=== PATIENT | female | born 1950 | race Caucasian/White ===

== ENCOUNTER 2025-02-01 23:31 | Inpatient (IN) | payer MEDICARE ==
[2025-02-02] MEDS ORDERED: HEPARIN SODIUM 1,000 UN/ML (10ML VL) IV PRN (00:09)
--- NOTE | 2025-02-02 00:13 | ED ---
General Adult HPI - General Chief complaint: Recheck/Abnormal Lab/Rx Stated complaint: Fall Time Seen by Provider: 02/01/25 23:35 Source: EMS Mode of arrival: EMS Limitations: altered mental status - History of Present Illness Initial comments: Dictation was produced using [employer] dictation software. please excuse any grammatical, word or spelling errors. Chief Complaint: 74-year-old female transfer of [facility] for pulmonary embolism History of Present Illness: Patient 74-year-old female seen and evaluated at [facility]. She was initially seen there for fall. She was diagnosed with UTI sepsis and left periorbital laceration. According to chart documentation patient had fallen 2 days ago was seen in the emergency department at [facility] today. Patient had a really been admitted however due to increasing oxygen demand documentation states that admission orders were discontinued patient was evaluated further. She ended up having a CT angiography that showed large saddle embolism. Patient started heparin. The ROS documented in this emergency department record has been reviewed and confirmed by me. Those systems with pertinent positive or negative responses have been documented in the HPI. All other systems are other negative and/or noncontributory. - Related Data Allergies Allergy/AdvReac Type Severity Reaction Status Date / Time codeine Allergy Unknown Verified 02/01/25 23:51 Penicillins Allergy Unknown Verified 02/01/25 23:51 Sulfa (Sulfonamide Allergy Unknown Verified 02/01/25 23:51 Antibiotics) Review of Systems ROS Statement: Those systems with pertinent positive or pertinent negative responses have been documented in the HPI. ROS Other: All systems not noted in ROS Statement are negative. Past Medical History Past Medical History: Heart Failure, Dementia, GERD/Reflux, Hyperlipidemia, Hypertension History of Any Multi-Drug Resistant Organisms: None Reported Past Surgical History: No Surgical Hx Reported Past Psychological History: Depression Smoking Status: Never smoker General Exam - General Exam Comments Initial Comments: PHYSICAL EXAM: General Impression: Alert and oriented, not in acute distress HEENT: Repaired left upper periorbital laceration with underlying ecchymoses extra-ocular movements intact, pupils equal and reactive to light bilaterally, mucous membranes moist. Cardiovascular: Heart regular rate and rhythm Chest: Able to complete full sentences, no retractions, no tachypnea Abdomen: abdomen soft, non-tender, non-distended, no organomegaly Musculoskeletal: Pulses present and equal in all extremities, no peripheral edema Motor: no focal deficits noted Neurological: CN II-XII grossly intact, no focal motor or sensory deficits noted Skin: Intact with no visualized rashes Psych: Normal affect and mood Limitations: altered mental status Course Vital Signs 02/01/25 02/02/25 02/02/25 23:45 00:15 00:19 Temperature 97.8 F Pulse Rate 95 Respiratory 20 Rate Blood Pressure 96/73 O2 Sat by Pulse 98 93 L Oximetry Fraction of 50 Inspired Oxygen (FIO2) 02/02/25 02/02/25 00:28 01:00 Temperature Pulse Rate 97 93 Respiratory 20 20 Rate Blood Pressure 99/47 116/55 O2 Sat by Pulse 95 95 Oximetry Fraction of Inspired Oxygen (FIO2) Medical Decision Making - Medical Decision Making Was pt. sent in by a medical professional or institution (MILENA Gandara, ENTRY LEVEL BUSINESS ANALYST, urgent care, hospital, or halfway...) When possible be specific @ -Sent from outside emergency department Did you speak to anyone other than the patient for history (EMS, parent, family, police, friend...)? What history was obtained from this source @ -No Did you review nursing and triage notes (agree or disagree)? Why? @ -I reviewed and agree with nursing and triage notes Were old charts reviewed (outside hosp., previous admission, EMS record, old EKG, old radiological studies, urgent care reports/EKG's, halfway records)? Report findings @ -Transfer documentation showed that patient was diagnosed with UTI sepsis given clindamycin and started on heparin. She did have an elevated troponin. CT angiography showed saddle pulmonary embolism Differential Diagnosis (chest pain, altered mental status, abdominal pain women, abdominal pain men, vaginal bleeding, musculoskeletal, weakness, fever, dyspnea, syncope, headache, dizziness, GI bleed, back pain, seizure, CVA, palpatations, mental health)? @ -Differential Dyspnea: Coronary syndrome, arrhythmia, tamponade, asthma, COPD, pulmonary embolism, pneumonia, pneumothorax, pulmonary effusion, anaphylaxis, diabetic ketoacidosis, flailed chest, pulmonary contusion, diaphragmatic rupture, anemia, neuromuscular, this is not meant to be an all-inclusive list. EKG interpreted by me (3pts min.). @ -My EKG interpretation: Ventricular rate 95, sinus rhythm,. 141, QRS 109, Q Tc 425. No AL prolongation, no QTC prolongation, no ST or T-wave changes noted. Overall, this EKG is unremarkable X-rays interpreted by me (1pt min.). @ -None done CT interpreted by me (1pt min.). @ -None done U/S interpreted by me (1pt. min.). @ -None done What testing was considered but not performed or refused? (CT, X-rays, U/S, labs)? Why? @ -None What meds were considered but not given or refused? Why? @ -None Was smoking cessation discussed for >3mins.? @ -No Were there social determinants of health that impacted care today? How? (Homelessness, low income, unemployed, alcoholism, drug addiction, transportation, low edu. Level, literacy, decrease access to med. care, usp, rehab)? @ -No Was there de-escalation of care discussed even if they declined (Discuss DNR or withdrawal of care, Hospice)? DNR status @ -No What co-morbidities impacted this encounter? (DM, HTN, Smoking, COPD, CAD, Cancer, CVA, ARF, Chemo, Hep., AIDS, mental health diagnosis, sleep apnea, morbid obesity)? @ -None Was patient admitted / discharged? Hospital course, mention meds given and route, prescriptions, significant lab abnormalities, going to OR and other pertinent info. @ -74-year-old female transferred from outside emergency department for pulmonary embolism. Patient was diagnosed with saddle PE started on heparin. Patient also has UTI was given antibiotics. Did you discuss the management of the patient with other professionals (professionals i.e. , PA, ENTRY LEVEL BUSINESS ANALYST, lab, RT, psych nurse, social sciences department chair, government sales manager, teacher, nursing officer, case management social worker)? Give summary @ -Case discussed residential substance abuse counselor. Case also texted close with hospitalist for admission Was critical care preformed (if so, how long)? @ -Yes, 77 minutes Undiagnosed new problem with uncertain prognosis? @ -No Drug Therapy requiring intensive monitoring for toxicity (Heparin, Nitro, Insulin, Cardizem)? @ -No Were any procedures done? @ -No Diagnosis/symptom? Acute, or Chronic, or Acute on Chronic? Uncomplicated (without systemic symptoms) or Complicated (systemic symptoms)? @ -PE Side effects of treatment? @ -No Exacerbation, Progression, or Severe Exacerbation? @ -No Poses a threat to life or bodily function? How? (Chest pain, [place], [place], pneumonia, PE, COPD, DKA, ARF, appy, cholecystitis, CVA, Diverticulitis, Homicidal, Suicidal, threat to staff... and all critical care pts) @ -yes - Lab Data Result diagrams: 02/02/25 00:15 02/02/25 00:15 Lab Results 02/02/25 02/02/25 02/02/25 Range/Units 00:15 00:15 00:15 WBC 11.95 H (4.50-10.00) 10*3/uL RBC 3.98 L (4.10-5.20) 10*6/uL Hgb 12.8 (12.0-15.0) g/dL Hct 37.4 (37.2-46.3) % MCV 94.0 (80.0-97.0) fL MCH 32.2 H (27.0-32.0) pg MCHC 34.2 (32.0-37.0) g/dL Plt Count 172 (140-440) 10*3/uL MPV 9.2 L (9.5-12.2) fL Immature Gran % (Auto) 0.5 % Neutrophils % 72.6 % Lymphocytes % 13.9 % Monocytes % 11.9 % Eosinophils % 0.8 % Basophils % 0.3 % Immature Gran # 0.06 H (0.00-0.04) 10*3/uL Neutrophils # 8.68 H (1.80-7.70) 10*3/uL Lymphocytes # 1.66 (0.90-5.00) 10*3/uL Monocytes # 1.42 H (0.20-1.00) 10*3/uL Eosinophils # 0.09 (0.04-0.35) 10*3/uL Basophils # 0.04 (0.00-0.10) 10*3/uL PT (10.0-12.5) sec INR (<1.2) APTT (22.0-30.0) sec Sodium 136 L (137-145) mmol/L Potassium 3.5 (3.5-5.1) mmol/L Chloride 101 (98-107) mmol/L Carbon Dioxide 27 (22-30) mmol/L Anion Gap 8 mmol/L BUN 16 (7-17) mg/dL Creatinine 0.66 (0.52-1.04) mg/dL Est GFR (CKD-EPI)AfAm >90 (>60 ml/min/1.73 sqM) Est GFR (CKD-EPI)NonAf 86 (>60 ml/min/1.73 sqM) Glucose 113 H (74-99) mg/dL Plasma Lactic Acid Ervin 1.6 (0.7-2.0) mmol/L Calcium 8.6 (8.4-10.2) mg/dL Magnesium 1.6 (1.6-2.3) mg/dL Total Bilirubin 0.5 (0.2-1.3) mg/dL AST 33 (14-36) U/L ALT 31 (4-34) U/L Alkaline Phosphatase 82 (38-126) U/L Total Protein 5.4 L (6.3-8.2) g/dL Albumin 2.9 L (3.5-5.0) g/dL 07/25/25 Range/Units 02:45 WBC (4.50-10.00) 10*3/uL RBC (4.10-5.20) 10*6/uL Hgb (12.0-15.0) g/dL Hct (37.2-46.3) % MCV (80.0-97.0) fL MCH (27.0-32.0) pg MCHC (32.0-37.0) g/dL Plt Count (140-440) 10*3/uL MPV (9.5-12.2) fL Immature Gran % (Auto) % Neutrophils % % Lymphocytes % % Monocytes % % Eosinophils % % Basophils % % Immature Gran # (0.00-0.04) 10*3/uL Neutrophils # (1.80-7.70) 10*3/uL Lymphocytes # (0.90-5.00) 10*3/uL Monocytes # (0.20-1.00) 10*3/uL Eosinophils # (0.04-0.35) 10*3/uL Basophils # (0.00-0.10) 10*3/uL PT 12.7 H (10.0-12.5) sec INR 1.2 H (<1.2) APTT 129.1 H* (22.0-30.0) sec Sodium (137-145) mmol/L Potassium (3.5-5.1) mmol/L Chloride (98-107) mmol/L Carbon Dioxide (22-30) mmol/L Anion Gap mmol/L BUN (7-17) mg/dL Creatinine (0.52-1.04) mg/dL Est GFR (CKD-EPI)AfAm (>60 ml/min/1.73 sqM) Est GFR (CKD-EPI)NonAf (>60 ml/min/1.73 sqM) Glucose (74-99) mg/dL Plasma Lactic Acid Ervin (0.7-2.0) mmol/L Calcium (8.4-10.2) mg/dL Magnesium (1.6-2.3) mg/dL Total Bilirubin (0.2-1.3) mg/dL AST (14-36) U/L ALT (4-34) U/L Alkaline Phosphatase (38-126) U/L Total Protein (6.3-8.2) g/dL Albumin (3.5-5.0) g/dL Disposition Clinical Impression: Pulmonary embolism Disposition: ADMITTED IP TO THIS [facility] Condition: Critical Referrals: Mark Cooper MD [Primary Care Provider] - 1-2 days Decision Time: 03:52
[2025-02-02] MEDS: HEPARIN SOD,PORK IN 0.45% NACL 25,000 UNIT in 0.45% NACL 1 250ML.BAG IV SCH (00:24)
[2025-02-02 00:37] LABS: Basophils # (A) 0.04 10*3/uL (0.00-0.10); Basophils % (A) 0.3 %; Eosinophils # (A) 0.09 10*3/uL (0.04-0.35); Eosinophils % (A) 0.8 %; HCT 37.4 % (37.2-46.3); HGB 12.8 g/dL (12.0-15.0); Lymphocytes # (A) 1.66 10*3/uL (0.90-5.00); Lymphocytes % (A) 13.9 %; MCH 32.2 pg (27.0-32.0); MCHC 34.2 g/dL (32.0-37.0); MCV 94.0 fL (80.0-97.0); Monocytes # (A) 1.42 10*3/uL (0.20-1.00); Monocytes % (A) 11.9 %; Neutrophils # (A) 8.68 10*3/uL (1.80-7.70); Neutrophils % (A) 72.6 %; Platelet Count 172 10*3/uL (140-440); RBC 3.98 10*6/uL (4.10-5.20); RDW 12.9 % (11.5-14.5); WBC 11.95 10*3/uL (4.50-10.00)
[2025-02-02 01:36] LABS: ALT 31 U/L (4-34); AST 33 U/L (14-36); African American GFR (CKD) >90 (>60 ml/min/1.73 sqM); Albumin 2.9 g/dL (3.5-5.0); Alkaline Phosphatase 82 U/L (38-126); Anion Gap 8 mmol/L; Blood Urea Nitrogen 16 mg/dL (7-17); Calcium 8.6 mg/dL (8.4-10.2); Carbon Dioxide 27 mmol/L (22-30); Chloride 101 mmol/L (98-107); Glucose 113 mg/dL (74-99); Magnesium 1.6 mg/dL (1.6-2.3); Non-African American GFR(CKD) 86 (>60 ml/min/1.73 sqM); Potassium 3.5 mmol/L (3.5-5.1); Sodium 136 mmol/L (137-145); Total Protein 5.4 g/dL (6.3-8.2)
[2025-02-02 03:18] LABS: INR 1.2 (<1.2); Prothrombin Time 12.7 sec (10.0-12.5)
[2025-02-02 03:38] LABS: Partial Thromboplastin Time 129.1 sec (22.0-30.0)
[2025-02-02] MEDS ORDERED: NALOXONE 0.4 MG/ML 1 ML VIAL IV PRN (03:48)
[2025-02-02] MEDS: oxyCODONE-APAP 10-325MG 1 EACH TAB PO STA (04:07)
[2025-02-02] MEDS: cefTRIAXone IN SWFI 1,000 MG/10 ML SYRINGE IVP SCH (04:30)
[2025-02-02] MEDS: SODIUM CHLORIDE 0.9% 1,000 ML IV SCH (06:54)
--- NOTE | 2025-02-02 09:25 | US ---
EXAMINATION TYPE: US venous doppler duplex LE BI DATE OF EXAM: 02/02/2025 9:04 AM COMPARISON: NONE CLINICAL INDICATION: Female, 74 years old with history of PE, rule out DVT. LE swelling; Patient AMS TECHNIQUE: The lower extremity deep venous system is examined utilizing real time linear array sonog vincent with graded compression, doppler sonography and color-flow sonography. Grayscale, color doppler , spectral doppler imaging performed of the deep veins of the lower extremities FINDINGS: SIDE PERFORMED: Bilateral VESSELS IMAGED: Common Femoral Vein Deep Femoral Vein Greater Saphenous Vein * Femoral Vein Popliteal Vein Small Saphenous Vein * Proximal Calf Veins (* superficial vessels) Right Leg: Positive for SVT; clot located within the GSV >3 cm from junction. Appears positive for D VT as well given limited visualization of the femoral vein ? incompressible and unable to obtain flow within prox, mid, and distal segments and mid and distal popliteal veins. Left Leg: Limited visualization, WNL as visualized. ; There is normal flow, compressibility, vascula r waveforms. IMPRESSION: 1. Right: Positive for SVT involving the GSV located greater than 3 cm from its junction with the lisandra p venous system. 2. Right: Limited visualization but appears to be positive for DVT along the length of the femoral ve in as well as the mid and lower popliteal vein. 3. Left: Limited visualization but without definite DVT identified. [facility], , 02/02/2025 9:22 AM
[2025-02-02 09:38] LABS: Glucose,Whole Blood 103 mg/dL (70-110)
--- NOTE | 2025-02-02 10:02 | P.GSCN ---
History of Present Illness Consult date: 02/02/25 Reason for Consult: EKOS candidate Requesting physician: Armand Mari History of present illness: This is a pleasant 74-year-old female who is pleasantly confused being evaluated for pulmonary embolism. Patient's is at the bedside and provides most of the HPI. Patient has a medical history of Alzheimer's dementia, asthma, GERD, depression, heart failure, and hyperlipidemia who was transferred from outside hospital [place] with concerns of hypoxia and pulmonary embolism. Apparently patient is in [facility] and fell out of her wheelchair landing on her face and head causing displaced fracture of her nose and left orbital injury with laceration, was sent to the emergency department in [place] was diagnosed with a urinary tract infection and discharged back to [facility]. Apparently when she got back to [facility] she was confused would not take her medications and then reportedly had increased oxygen demands. They then sent her back to [facility] she underwent a CT angiogram of the chest that reported moderately severe saddle embolus involving right lower and left lower lobe with evidence of right heart strain with RV/LV ratio of 1.32. Vascular surgery was consulted as EKOS candidate however patient is not an EKOS candidate secondary to recent trauma. Patient is currently in the emergency department waiting for an ICU bed. She is on 15 L nonrebreather with oxygen level 95 to 100%. Patient has been hypotensive however patient's states that she is always hypotensive. He also states that she has underlying lung disease secondary to long-term asthma. Patient did have elevated troponin at [facility] no repeat done here. Patient appears comfortable in no distress. Review of Systems ROS unobtainable: due to mental status Past Medical History Past Medical History: Heart Failure, Dementia, GERD/Reflux, Hyperlipidemia, Hypertension History of Any Multi-Drug Resistant Organisms: None Reported Past Surgical History: No Surgical Hx Reported Past Psychological History: Depression Smoking Status: Never smoker Medications and Allergies Home Medications Medication Instructions Recorded Confirmed Type Albuterol Nebulized [Ventolin 2.5 mg INHALATION RT-Q4H PRN 02/02/25 02/02/25 History Nebulized] Aspirin 81 mg PO DAILY 02/02/25 02/02/25 History Atorvastatin [Lipitor] 20 mg PO HS 02/02/25 02/02/25 History Calcium Carbonate/Vitamin D3 2 tab PO BID 02/02/25 02/02/25 History [Calcium 500 mg-Vit D3 5 mcg (200 Unit)] Famotidine [Pepcid] 20 mg PO DAILY 02/02/25 02/02/25 History Losartan [Cozaar] 50 mg PO DAILY 02/02/25 02/02/25 History Magnesium Hydroxide [Milk of 2,400 mg PO Q48H PRN 02/02/25 02/02/25 History Magnesia] Memantine [Namenda] 5 mg PO DAILY 02/02/25 02/02/25 History Montelukast [Singulair] 10 mg PO DAILY 02/02/25 02/02/25 History Potassium Citrate [Potassium 20 meq PO BID@0800,1700 02/02/25 02/02/25 History Citrate ER] Sennosides/Docusate Sodium [Senna 2 tab PO DAILY 02/02/25 02/02/25 History Plus 8.6-50 mg Tablet] Venlafaxine HCl ER [Effexor Xr] 150 mg PO DAILY 02/02/25 02/02/25 History bisacodyL [Dulcolax] 10 mg RECTAL Q72H PRN 02/02/25 02/02/25 History clonazePAM 0.5 mg PO DAILY 02/02/25 02/02/25 History hydroCHLOROthiazide [Hydrodiuril] 25 mg PO DAILY 02/02/25 02/02/25 History risperiDONE [RisperDAL] 1 mg PO BID 02/02/25 02/02/25 History traZODone HCL [Desyrel] 50 mg PO HS 02/02/25 02/02/25 History Allergies Allergy/AdvReac Type Severity Reaction Status Date / Time codeine Allergy Unknown Verified 02/02/25 10:17 Penicillins Allergy Unknown Verified 02/02/25 10:17 Sulfa (Sulfonamide Allergy Unknown Verified 02/02/25 10:17 Antibiotics) Surgical - Exam Vital Signs Temp Pulse Resp BP Pulse Ox 97.8 F 95 20 96/73 98 02/01/25 23:45 02/01/25 23:45 02/01/25 23:45 02/01/25 23:45 02/01/25 23:45 General appearance: The patient is alert, oriented to self, confused, appears in no acute distress. HET: Head and face appear with traumatic injury. Nose is bruised and displaced, abrasions on her face, left eye/orbit with significant swelling and bruising with laceration with bleeding. Neck: Supple. Heart: Regular. Lungs: Equal expansion, normal respiratory effort. Abdomen: Soft, nondistended. Extremities: Normal skin color and turgor. Lower extremity swelling. Neurological: Alert and oriented x 1. Results - Labs 02/02/25 00:15 02/02/25 00:15 Abnormal Lab Results - Last 24 Hours (Table) 02/02/25 02/02/25 02/02/25 Range/Units 00:15 00:15 02:45 WBC 11.95 H (4.50-10.00) 10*3/uL RBC 3.98 L (4.10-5.20) 10*6/uL MCH 32.2 H (27.0-32.0) pg MPV 9.2 L (9.5-12.2) fL Immature Gran # 0.06 H (0.00-0.04) 10*3/uL Neutrophils # 8.68 H (1.80-7.70) 10*3/uL Monocytes # 1.42 H (0.20-1.00) 10*3/uL PT 12.7 H (10.0-12.5) sec INR 1.2 H (<1.2) APTT 129.1 H* (22.0-30.0) sec Sodium 136 L (137-145) mmol/L Glucose 113 H (74-99) mg/dL Total Protein 5.4 L (6.3-8.2) g/dL Albumin 2.9 L (3.5-5.0) g/dL Diabetes panel 02/02/25 Range/Units 00:15 Sodium 136 L (137-145) mmol/L Potassium 3.5 (3.5-5.1) mmol/L Chloride 101 (98-107) mmol/L Carbon Dioxide 27 (22-30) mmol/L BUN 16 (7-17) mg/dL Creatinine 0.66 (0.52-1.04) mg/dL Glucose 113 H (74-99) mg/dL Calcium 8.6 (8.4-10.2) mg/dL AST 33 (14-36) U/L ALT 31 (4-34) U/L Alkaline Phosphatase 82 (38-126) U/L Total Protein 5.4 L (6.3-8.2) g/dL Albumin 2.9 L (3.5-5.0) g/dL Calcium panel 02/02/25 Range/Units 00:15 Calcium 8.6 (8.4-10.2) mg/dL Albumin 2.9 L (3.5-5.0) g/dL Pituitary panel 02/02/25 Range/Units 00:15 Sodium 136 L (137-145) mmol/L Potassium 3.5 (3.5-5.1) mmol/L Chloride 101 (98-107) mmol/L Carbon Dioxide 27 (22-30) mmol/L BUN 16 (7-17) mg/dL Creatinine 0.66 (0.52-1.04) mg/dL Glucose 113 H (74-99) mg/dL Calcium 8.6 (8.4-10.2) mg/dL Adrenal panel 02/02/25 Range/Units 00:15 Sodium 136 L (137-145) mmol/L Potassium 3.5 (3.5-5.1) mmol/L Chloride 101 (98-107) mmol/L Carbon Dioxide 27 (22-30) mmol/L BUN 16 (7-17) mg/dL Creatinine 0.66 (0.52-1.04) mg/dL Glucose 113 H (74-99) mg/dL Calcium 8.6 (8.4-10.2) mg/dL Total Bilirubin 0.5 (0.2-1.3) mg/dL AST 33 (14-36) U/L ALT 31 (4-34) U/L Alkaline Phosphatase 82 (38-126) U/L Total Protein 5.4 L (6.3-8.2) g/dL Albumin 2.9 L (3.5-5.0) g/dL - Imaging Comments: Reports from outside facility CT angiogram impression reads moderately severe saddle embolus involving right lower and left lower lobe. Evidence of right heart strain with RV/LV ratio of 1.32. Extensive opacity left upper lobe with additional patchy opacity both lower lobes likely infection CT chest without contrast impression reads marked demineralization, age-in determinate indulation present involving anterior bilateral ribs without acute displaced fracture. Findings compatible with subacute healing anterior left rib fracture. Vertebral body heights, alignment and sternum are intact. Mild posterior dependent groundglass opacities potentially representing component of airspace disease and/or atelectasis, no large consolidation or congestive changes. Cardiomegaly with prominent main pulmonary artery seen and pulmonary arterial hypertension. No pleural effusion or congestive changes. CT spinecervical without contrast report reads no displaced fracture or dislocation. Vertebral body heights are maintained. Degenerative disc disease as above. CT head without contrast report reads no acute bleed, mass effect or midline shift. Senescent changes as above. Soft tissue edema overlying the nose left side greater than right there is right-sided deviation of the nasal bones with suspected very subtle nondisplaced nasal bone fracture Assessment and Plan Assessment: 1. Bilateral saddle embolus with possible right heart strain 2. Right lower extremity SVT and DVT 3. Face/head trauma out of wheelchair at long-term care facility on 02/01/2025 4. Long history of asthma, lung disease per patient's 5. Dementia/Alzheimer's disease 6. History of heart failure Plan: 1. Echocardiogram ordered, currently pending 2. Patient is not a good candidate for EKOS secondary to acute face and head trauma, risk for bleeding with tPA 3. Continue heparin drip for now 4. Venous duplex bilateral lower extremities ordered and reviewed 5. Dr. Mendiola with pulmonology/responder recommending surgical intervention for saddle PE today secondary to patient's oxygen demand. Patient will be transferred to [facility] accepted by Dr. Cain for thrombectomy, will discuss with [facility] hospitalist to initiate transfer.. Thank you for this consultation, we will continue to follow along. The impression and plan of care has been dictated as directed. Dr. Cain I performed a history and examination of this patient, discussed the same with the dictator. I agree with the dictator's note ,documented as a scribe. Any additional findings or plans will be noted.
[2025-02-02 10:43] LABS: ABG HCO3 28 mmol/L (21-25); ABG PCO2 46 mmHg (35-45); ABG PH 7.39 (7.35-7.45); ABG PO2 101 mmHg (83-108); ABG TCO2 29 mmol/L (19-24); Allen Test Performed? Yes
[2025-02-02] MEDS: PANTOPRAZOLE 40 MG/10 ML VIAL IV SCH (11:04)
[2025-02-02] MEDS ORDERED: ALBUTEROL NEBULIZED 2.5 MG/3 ML INHALATION PRN (12:46)
[2025-02-02] MEDS: HEPARIN SODIUM,PORCINE/D5W 25,000 UNIT in EMPTY BAG 1 BAG IV SCH (12:56)
--- NOTE | 2025-02-02 13:22 | XR ---
EXAMINATION TYPE: XR chest 1V portable DATE OF EXAM: 02/02/2025 1:18 PM COMPARISON: None CLINICAL INDICATION: Female, 74 years old with history of CHF, , FINDINGS: Heart is mild to moderately enlarged. Mild interstitial density. Blunted left costophrenic angle. No ibis consolidation. IMPRESSION: [id number] cardiomegaly with pulmonary vascular congestion. Trace left effusion. [facility], Workstation: [facility], 02/02/2025 1:20 PM
--- NOTE | 2025-02-02 14:30 | P.CNPUL ---
History of Present Illness Consult date: 02/02/25 Requesting physician: Rubi Cantu Reason for consult: pulmonary embolism Chief complaint: Status post fall out of wheelchair. History of present illness: This is a 74-year-old white female with history of multiple medical problems including dementia, hypertension, history of congestive heart failure, patient is normally a resident of [facility], and yesterday she fell out of her chair landing on her face causing displaced fracture of the nose with left orbital injury and laceration. Patient was sent to ER at [place], she had repair of her laceration in the orbital area, she was also diagnosed with urinary tract infection apparently she was discharged back to auto mode, and she developed worsening confusion, increased shortness of breath and worsening oxygen demand. Patient was sent back to [facility], and had a CT angiogram of the chest showing severe saddle embolus involving the right lower and left lower lobe with evidence of right heart strain. Hence patient was transferred to [facility], and I saw this patient on consultation in the ER. Patient clearly has a facial trauma with periorbital edema involving the left eye. And involving her nose. She is on 15 L nonrebreather mask seems to be comfortable, not in distress, ABG showed a pO2 of 101 pCO2 46 pH of 7.39. PTT is 53.2, patient is on heparin. Her WBC count is 11.9 hemoglobin 12.8. Venous Doppler is positive for right deep vein thrombosis. No DVT noted in the left lower extremity. Patient was seen by vascular surgery for possible thrombectomy, echocardiogram is pending. Vascular surgery felt that the patient is not a good candidate for EKOS mostly because of her facial trauma and she will have more risk of bleeding with tPA. Her O2 requirement is relatively high, patient is on nonrebreather mask, hence we will discuss with vascular surgery the possibility of transferring the patient for thrombectomy. The medical service on the case will initiate the process, in the meantime the patient remains on heparin and titrated as per protocol. Review of Systems ROS unobtainable: due to mental status Past Medical History Past Medical History: Heart Failure, Dementia, GERD/Reflux, Hyperlipidemia, Hypertension History of Any Multi-Drug Resistant Organisms: None Reported Past Surgical History: No Surgical Hx Reported Past Anesthesia/Blood Transfusion Reactions: No Reported Reaction Past Psychological History: Depression Smoking Status: Never smoker Medications and Allergies Home Medications Medication Instructions Recorded Confirmed Type Albuterol Nebulized [Ventolin 2.5 mg INHALATION RT-Q4H PRN 02/02/25 02/02/25 History Nebulized] Aspirin 81 mg PO DAILY 02/02/25 02/02/25 History Atorvastatin [Lipitor] 20 mg PO HS 02/02/25 02/02/25 History Calcium Carbonate/Vitamin D3 2 tab PO BID 02/02/25 02/02/25 History [Calcium 500 mg-Vit D3 5 mcg (200 Unit)] Famotidine [Pepcid] 20 mg PO DAILY 02/02/25 02/02/25 History Losartan [Cozaar] 50 mg PO DAILY 02/02/25 02/02/25 History Magnesium Hydroxide [Milk of 2,400 mg PO Q48H PRN 02/02/25 02/02/25 History Magnesia] Memantine [Namenda] 5 mg PO DAILY 02/02/25 02/02/25 History Montelukast [Singulair] 10 mg PO DAILY 02/02/25 02/02/25 History Potassium Citrate [Potassium 20 meq PO BID@0800,1700 02/02/25 02/02/25 History Citrate ER] Sennosides/Docusate Sodium [Senna 2 tab PO DAILY 02/02/25 02/02/25 History Plus 8.6-50 mg Tablet] Venlafaxine HCl ER [Effexor Xr] 150 mg PO DAILY 02/02/25 02/02/25 History bisacodyL [Dulcolax] 10 mg RECTAL Q72H PRN 02/02/25 02/02/25 History clonazePAM 0.5 mg PO DAILY 02/02/25 02/02/25 History hydroCHLOROthiazide [Hydrodiuril] 25 mg PO DAILY 02/02/25 02/02/25 History risperiDONE [RisperDAL] 1 mg PO BID 02/02/25 02/02/25 History traZODone HCL [Desyrel] 50 mg PO HS 02/02/25 02/02/25 History Allergies Allergy/AdvReac Type Severity Reaction Status Date / Time codeine Allergy Unknown Verified 02/02/25 10:17 Penicillins Allergy Unknown Verified 02/02/25 10:17 Sulfa (Sulfonamide Allergy Unknown Verified 02/02/25 10:17 Antibiotics) Physical Exam Vitals: Vital Signs Temp Pulse Pulse Resp BP Pulse Ox FiO2 02/02/25 13:00 87 17 102/65 99 02/02/25 12:00 84 84 18 105/66 100 02/02/25 11:00 96.8 F L 84 17 96/47 100 02/02/25 10:40 82 18 99/63 99 02/02/25 10:30 84 16 106/55 100 02/02/25 10:20 80 18 106/55 100 02/02/25 10:10 82 19 118/57 99 02/02/25 10:00 82 19 109/62 99 02/02/25 09:50 86 19 117/56 99 02/02/25 09:40 86 20 117/56 02/02/25 09:37 78 18 121/59 96 02/02/25 09:34 90 19 02/02/25 08:00 84 02/02/25 07:59 84 18 93/64 97 02/02/25 06:41 82 20 101/55 100 02/02/25 05:18 96 16 129/63 99 02/02/25 01:00 93 20 116/55 95 02/02/25 00:28 97 20 99/47 95 02/02/25 00:19 93 L 02/02/25 00:15 50 02/01/25 23:45 97.8 F 95 20 96/73 98 Intake and Output 02/01/25 02/02/25 02/02/25 22:59 06:59 14:59 Intake Total 66.339 649.276 Output Total 600 Balance 66.339 49.276 Intake: IV 520 Sodium Chloride 0.9% 1, 520 000 ml @ 75 mls/hr IV . [id number] [facility] Rx#:[id number] Intake, IV Titration 66.339 129.276 Amount Heparin Sod,Pork in 0.45% 66.339 129.276 NaCl 25,000 unit In 0.45 % NaCl 1 250ml.bag @ 18 UNITS/KG/HR 20.412 mls/hr IV .[id number] [facility] Rx#: [id number] Output: Urine 600 Other: Voiding Method Indwelling Catheter Weight 113.4 kg Physical exam revealed a 74 year-old, in no distress, on a nonrebreather mask Head: Evidence of periorbital edema/hematoma and repaired laceration of the periorbital area EENT: Significant periorbital edema and hematoma from recent fall. Chest: Symmetrical chest expansion Lungs: Diminished breath sound bilaterally no crackles rhonchi or wheezes Cardiac: Distant S1-S2, no S3 gallop. Abdomen: Obese, soft nontender no megaly no rebound no guarding good bowel sounds Extremities 1+ bipedal edema good pulses bilaterally. Musculoskeletal: No deformities and no limitation range of motion Neurologic: Patient is lethargic, arousable, follows very simple instructions. Profoundly weak. Psychiatric: Could not assess Skin: As noted above regarding her periorbital swelling and edema/related to recent trauma/fall Results - Laboratory Findings CBC and BMP: 02/02/25 00:15 02/02/25 00:15 ABG ABG pH 7.39 (7.35-7.45) 02/02/25 10:41 ABG pCO2 46 mmHg (35-45) H 02/02/25 10:41 ABG pO2 101 mmHg (83-108) 02/02/25 10:41 ABG O2 Saturation 97.7 % (94-97) H 02/02/25 10:41 PT/INR, D-dimer PT 12.7 sec (10.0-12.5) H 02/02/25 02:45 INR 1.2 (<1.2) H 02/02/25 02:45 Abnormal lab findings: Abnormal Labs 02/02/25 02/02/25 02/02/25 00:15 00:15 02:45 WBC 11.95 H RBC 3.98 L MCH 32.2 H MPV 9.2 L Immature Gran # 0.06 H Neutrophils # 8.68 H Monocytes # 1.42 H PT 12.7 H INR 1.2 H APTT 129.1 H* ABG pCO2 ABG HCO3 ABG Total CO2 ABG O2 Saturation Sodium 136 L Glucose 113 H Total Protein 5.4 L Albumin 2.9 L 02/02/25 02/02/25 10:41 12:22 WBC RBC MCH MPV Immature Gran # Neutrophils # Monocytes # PT INR APTT 53.2 H ABG pCO2 46 H ABG HCO3 28 H ABG Total CO2 29 H ABG O2 Saturation 97.7 H Sodium Glucose Total Protein Albumin - Diagnostic Findings CT scan - chest: image reviewed (As noted in HPI) Assessment and Plan Assessment: Impression: Acute hypoxic respiratory failure Bilateral saddle embolus with possible right heart strain Right lower extremity SVT and DVT Recent history of trauma with facial laceration and periorbital edema/hematoma secondary to fall History of dementia/Alzheimer's disease History of congestive heart failure unknown ejection fraction Recommendation: Patient was seen in the ER, reviewed workup from [facility] and our institution I am recommending CT of the head considering that the patient had recent head trauma and no clear-cut evidence whether the patient had CT of the head in Dr Lantigua Will continue heparin for now and make sure it is in the therapeutic range as p er protocol. Awaiting the results of the echocardiogram Strongly recommend sending the patient down to [facility] for possible thrombectomy at the patient's FiO2 requirement is relatively high Continue to monitor patient for now in the ICU until transfer takes place. Overall prognosis is definitely poor and guarded. Will continue to follow Time with Patient: Greater than 30
--- NOTE | 2025-02-02 16:10 | P.DS ---
Providers Date of admission: 02/02/25 03:51 Expected date of discharge: 02/02/25 Attending physician: Rubi Cantu Consults: 02/02/25 03:48 Consult Physician Stat Consulting Provider: Camilo Mendiola Consult Reason/Comments: icu patient Do you want consulting provider notified?: Already Contacted Consult Physician Urgent Consulting Provider: Zafar Cain Consult Reason/Comments: ekos candidate Do you want consulting provider notified?: Yes 02/02/25 09:41 Consult Physician Urgent Consulting Provider: Tim Campbell Consult Reason/Comments: ? EKOS Saddle PE Do you want consulting provider notified?: Yes Primary care physician: Mark Cooper Hospital Course: Final diagnosis Severe saddle embolus involving right lower and left lower lobe with evidence of right heart strain on CT imaging at [facility] Right lower extremity SVT and DVT Left periorbital laceration with facial laceration and hematoma secondary to fall Acute hypoxic respiratory failure requiring nonrebreather secondary to assessment #1 History of dementia History of hypertension History of congestive heart failure, unknown EF [facility] resident Obesity with a BMI of 35.9 GI prophylaxis DVT prophylaxis Full code Discharge disposition Patient is being transferred in a stable condition with guarded prognosis to [facility] in [place]. Patient will follow-up with Dr. Cooper in the outpatient setting upon discharge. Patient has been accepted to the medical ICU at [facility] and accepting physician is Dr. Bryan as medical with vascular on consult for possible thrombectomy secondary to bilateral saddle PE with evidence of right heart strain. Total time taken is greater than 35 minutes. Hospital course This is a 74-year-old female who was recently at [facility] secondary to a fall out of the wheelchair as she lives at [facility] with history of dementia, heart failure, hypertension and obesity. Patient struck her head on the left suffering a laceration and also had some altered mental status. During the workup there was concerns of possible sepsis with UTI and requiring increased oxygen demands. CT angio was performed showing severe saddle embolus involving the right lower and left lower lobe with evidence of right heart strain and patient was sent here at [facility] for further evaluation and possible thrombectomy as patient is likely not a good candidate for EKOS. Unfortunately there were no vascular surgeons available today recommending transfer and initially was accepted by Dr. Cain at [facility] although was told by transfer team they are unable to accept the transfer as there are no ICU beds available. Yaakov Damon was contacted and given report and has accepted the patient. 2D echo was performed here at [facility] and currently pending read and also venous Doppler of the lower extremities was performed and noted to have evidence of a right DVT. Patient was started on heparin and is continued at this time. Patient is currently on 15 L nonrebreather saturating at 99% and will be weaning as tolerated. The actual disc of the CT from [facility] along with other images and medical record has been copied for transfer. Currently awaiting a bed and transfer team will contact ICU once a bed is available. COVID testing is negative Currently no reports of chest pain, no worsening shortness of breath, or palpitations. Patient is afebrile. No reports of nausea or vomiting and patient is currently n.p.o. Overall prognosis is guarded at this time. Physical exam: Gen: This is a 74-year-old female who is lethargic although arousable, awake, alert and oriented x 1-2, baseline, well-developed, elderly appearing, obese, ill-appearing HEENT: Head is atraumatic, normocephalic. Pupils equal, round. Sclerae is anicteric. NECK: Supple. No JVD. No lymphadenopathy. No thyromegaly. LUNGS: Diminished breath sounds bilaterally with coarse scattered rhonchi noted. No intercostal retractions. HEART: S1, S2 are muffled ABDOMEN: Soft. Obese bowel sounds are present. No masses. No tenderness. EXTREMITIES: No pedal edema. No calf tenderness. NEUROLOGICAL: Patient is awake, alert and oriented x 1-2. Cranial nerves 2 through 12 are grossly intact. Wheelchair-bound Please refer to medication reconciliation sheet for a list of medications. The impression and plan of care has been dictated by Manuela Esteves, Nurse Practitioner as directed. Dr. Pepe MD I have performed a history and examination and MDM of this patient, discussed the same with the dictator, and agree with the dictator's assessment and plan as written ,documented as a scribe. Based on total visit time, I have performed more than 50% of the visit. Patient Condition at Discharge: Critical Plan - Discharge Summary Discharge Rx Participant: No New Discharge Prescriptions: No Action traZODone HCL [Desyrel] 50 mg PO HS Venlafaxine HCl ER [Effexor Xr] 150 mg PO DAILY Montelukast [Singulair] 10 mg PO DAILY risperiDONE [RisperDAL] 1 mg PO BID Sennosides/Docusate Sodium [Senna Plus 8.6-50 mg Tablet] 2 tab PO DAILY Potassium Citrate [Potassium Citrate ER] 20 meq PO BID@0800,1700 Magnesium Hydroxide [Milk of Magnesia] 2,400 mg PO Q48H PRN PRN Reason: Constipation Memantine [Namenda] 5 mg PO DAILY Losartan [Cozaar] 50 mg PO DAILY clonazePAM 0.5 mg PO DAILY Calcium Carbonate/Vitamin D3 [Calcium 500 mg-Vit D3 5 mcg (200 Unit)] 2 tab PO BID bisacodyL [Dulcolax] 10 mg RECTAL Q72H PRN PRN Reason: Constipation hydroCHLOROthiazide [Hydrodiuril] 25 mg PO DAILY Famotidine [Pepcid] 20 mg PO DAILY Atorvastatin [Lipitor] 20 mg PO HS Aspirin 81 mg PO DAILY Albuterol Nebulized [Ventolin Nebulized] 2.5 mg INHALATION RT-Q4H PRN PRN Reason: Shortness Of Breath Discharge Medication List Albuterol Nebulized [Ventolin Nebulized] 2.5 mg INHALATION RT-Q4H PRN 02/02/25 [History] Aspirin 81 mg PO DAILY 02/02/25 [History] Atorvastatin [Lipitor] 20 mg PO HS 02/02/25 [History] Calcium Carbonate/Vitamin D3 [Calcium 500 mg-Vit D3 5 mcg (200 Unit)] 2 tab PO BID 02/02/25 [History] Famotidine [Pepcid] 20 mg PO DAILY 02/02/25 [History] Losartan [Cozaar] 50 mg PO DAILY 02/02/25 [History] Magnesium Hydroxide [Milk of Magnesia] 2,400 mg PO Q48H PRN 02/02/25 [History] Memantine [Namenda] 5 mg PO DAILY 02/02/25 [History] Montelukast [Singulair] 10 mg PO DAILY 02/02/25 [History] Potassium Citrate [Potassium Citrate ER] 20 meq PO BID@0800,1700 02/02/25 [History] Sennosides/Docusate Sodium [Senna Plus 8.6-50 mg Tablet] 2 tab PO DAILY 02/02/25 [History] Venlafaxine HCl ER [Effexor Xr] 150 mg PO DAILY 02/02/25 [History] bisacodyL [Dulcolax] 10 mg RECTAL Q72H PRN 02/02/25 [History] clonazePAM 0.5 mg PO DAILY 02/02/25 [History] hydroCHLOROthiazide [Hydrodiuril] 25 mg PO DAILY 02/02/25 [History] risperiDONE [RisperDAL] 1 mg PO BID 02/02/25 [History] traZODone HCL [Desyrel] 50 mg PO HS 02/02/25 [History] Follow up Appointment(s)/Referral(s): Mark Cooper MD [Primary Care Provider] - 1-2 days
--- NOTE | 2025-02-02 20:01 | P.CRDCN ---
History of Present Illness History of present illness: HISTORY OF PRESENTING ILLNESS This is a pleasant 74-year-old with past medical history significant for dementia, hypertension, reported CHF, GERD, depression, asthma. 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 History is supplied by and chart with patient and A+O x 1. Patient initially had a reported mechanical fall while at retirement. states over the last 2-3 months she has not been eating and had become weaker and after initial hospitalization had been placed in rehab for a few weeks. Usually at home with . At rehab she had mechanical fall sliding over and did not brace herself with significant hematoma over left eyelid. She was evaluated in ER and sent back to rehab. Later at rehab she was found to have significant increasing oxygen demands with some confusion. She went to [place] [facility] and workup showed mildly elevated troponin 0.3. CT PE p rotocol showed bilateral PE with saddle PE and increased RV:LV ratio. She was placed on heparin, requiried 15L Ventimask and transported to [facility]. She has been hemodynamically stable. Vascular surgery was consulted for PE. Preliminary echo showed preserved EF with some increased RV size and mild RV hypokinesis, RVSP 43. Oxygen walked down to 5L and sating at 93%. She denies any chest pain or pressure. + mild SOB. Venous US shows + GSV on right and likely + right DVT. REVIEW OF SYSTEMS At the time of my exam: CONSTITUTIONAL: Denies fever or chills. CARDIOVASCULAR: Denies chest pain, +shortness of breath, no orthopnea, PND or palpitations. RESPIRATORY: Denies cough. GASTROINTESTINAL: Denies abdominal pain, diarrhea, constipation, nausea or vomiting. MUSCULOSKELETAL: Denies myalgias. NEUROLOGIC: Denies numbness, tingling or weakness. ENDOCRINE: Denies fatigue, weight change, polydipsia or polyurina. GENITOURINARY: Denies burning, hematuria or urgency with micturation. HEMATOLOGIC: Denies history of anemia or bleeding. PHYSICAL EXAMINATION Vital signs reviewed. CONSTITUTIONAL: No apparent distress, +echymosis of left eye with hematoma HEENT: Head is normocephalic. Pupils are equal, round. Sclerae anicteric. Mucous membranes of the mouth are moist. No JVD. No carotid bruit. CHEST EXAMINATION: Lungs are clear to auscultation. No chest wall tenderness is noted on palpation or with deep breathing. HEART EXAMINATION: Regular rate and rhythm. S1, S2 heard. No murmurs, gallops or rub. ABDOMEN: Soft, nontender. Positive bowel sounds. EXTREMITIES: 2+ peripheral pulses, no lower extremity edema and no calf tenderness. NEUROLOGIC EXAMINATION: Patient is awake, alert and oriented x1. ASSESSMENT Submassive PE with elevated troponins and RV strain Recent fall with severe left eye echymosis/ hematoma NSTEMI related to PE Dementia, appears at baseline, pleasantly confused Hypertension Reported CHF Acute on chronic respiratory failure Recent mechanical fall Recent hospitalization for decreased appetite, apparently somewhat improving in rehab DVT PLAN Continue with IV heparin Monitor for any worsening of eye hematoma NSTEMI appears type 2 mechanism related to PE Await 2D echo Discussed case with , vascular surgeon and ICU. Logistically unlikely to be able to perform Inari thrombectomy today however can be performed tomorrow. Discussed option of transfer to other center with however he is desiring to stay at [facility] with likely Inari tomorrow with vascular surgery. Patient appears stable improving on IV heparin with some decreasing O2 demands and continue to monitor. Past Medical History Past Medical History: Heart Failure, Dementia, GERD/Reflux, Hyperlipidemia, Hypertension History of Any Multi-Drug Resistant Organisms: None Reported Past Surgical History: No Surgical Hx Reported Past Anesthesia/Blood Transfusion Reactions: No Reported Reaction Past Psychological History: Depression Smoking Status: Never smoker Medications and Allergies Home Medications Medication Instructions Recorded Confirmed Type Albuterol Nebulized [Ventolin 2.5 mg INHALATION RT-Q4H PRN 02/02/25 02/02/25 History Nebulized] Aspirin 81 mg PO DAILY 02/02/25 02/02/25 History Atorvastatin [Lipitor] 20 mg PO HS 02/02/25 02/02/25 History Calcium Carbonate/Vitamin D3 2 tab PO BID 02/02/25 02/02/25 History [Calcium 500 mg-Vit D3 5 mcg (200 Unit)] Famotidine [Pepcid] 20 mg PO DAILY 02/02/25 02/02/25 History Losartan [Cozaar] 50 mg PO DAILY 02/02/25 02/02/25 History Magnesium Hydroxide [Milk of 2,400 mg PO Q48H PRN 02/02/25 02/02/25 History Magnesia] Memantine [Namenda] 5 mg PO DAILY 02/02/25 02/02/25 History Montelukast [Singulair] 10 mg PO DAILY 02/02/25 02/02/25 History Potassium Citrate [Potassium 20 meq PO BID@0800,1700 02/02/25 02/02/25 History Citrate ER] Sennosides/Docusate Sodium [Senna 2 tab PO DAILY 02/02/25 02/02/25 History Plus 8.6-50 mg Tablet] Venlafaxine HCl ER [Effexor Xr] 150 mg PO DAILY 02/02/25 02/02/25 History bisacodyL [Dulcolax] 10 mg RECTAL Q72H PRN 02/02/25 02/02/25 History clonazePAM 0.5 mg PO DAILY 02/02/25 02/02/25 History hydroCHLOROthiazide [Hydrodiuril] 25 mg PO DAILY 02/02/25 02/02/25 History risperiDONE [RisperDAL] 1 mg PO BID 02/02/25 02/02/25 History traZODone HCL [Desyrel] 50 mg PO HS 02/02/25 02/02/25 History Allergies Allergy/AdvReac Type Severity Reaction Status Date / Time codeine Allergy Unknown Verified 02/02/25 10:17 Penicillins Allergy Unknown Verified 02/02/25 10:17 Sulfa (Sulfonamide Allergy Unknown Verified 02/02/25 10:17 Antibiotics) Physical Exam Vitals: Vital Signs Temp Pulse Pulse Resp BP Pulse Ox FiO2 02/02/25 18:00 92 18 97/73 92 L 50 02/02/25 17:00 90 17 105/66 96 50 02/02/25 16:54 50 02/02/25 16:00 97.4 F L 85 84 16 102/73 97 50 02/02/25 15:00 88 18 124/54 99 02/02/25 14:00 87 16 106/67 99 02/02/25 13:00 87 17 102/65 99 02/02/25 12:00 84 84 18 105/66 100 02/02/25 11:00 96.8 F L 84 17 96/47 100 02/02/25 10:40 82 18 99/63 99 02/02/25 10:30 84 16 106/55 100 02/02/25 10:20 80 18 106/55 100 02/02/25 10:10 82 19 118/57 99 02/02/25 10:00 82 19 109/62 99 02/02/25 09:50 86 19 117/56 99 02/02/25 09:40 86 20 117/56 02/02/25 09:37 78 18 121/59 96 02/02/25 09:34 90 19 02/02/25 08:00 84 02/02/25 07:59 84 18 93/64 97 02/02/25 06:41 82 20 101/55 100 02/02/25 05:18 96 16 129/63 99 02/02/25 01:00 93 20 116/55 95 02/02/25 00:28 97 20 99/47 95 02/02/25 00:19 93 L 02/02/25 00:15 50 02/01/25 23:45 97.8 F 95 20 96/73 98 Intake and Output 02/02/25 02/02/25 02/02/25 06:59 14:59 22:59 Intake Total 66.339 504.276 300 Output Total 630 385 Balance 66.339 -125.724 -85 Intake: IV 375 300 Sodium Chloride 0.9% 1, 375 300 000 ml @ 75 mls/hr IV . [id number] [facility] Rx#:[id number] Intake, IV Titration 66.339 129.276 Amount Heparin Sod,Pork in 0.45% 66.339 129.276 NaCl 25,000 unit In 0.45 % NaCl 1 250ml.bag @ 18 UNITS/KG/HR 20.412 mls/hr IV .[id number] [facility] Rx#: [id number] Output: Urine 630 385 Other: Voiding Method Indwelling Catheter Indwelling Catheter Weight 113.4 kg Results 02/02/25 00:15 02/02/25 00:15 Cardiac Enzymes 02/02/25 Range/Units 00:15 AST 33 (14-36) U/L Coagulation 02/02/25 02/02/25 Range/Units 02:45 12:22 PT 12.7 H (10.0-12.5) sec APTT 129.1 H* 53.2 H (22.0-30.0) sec CBC 02/02/25 Range/Units 00:15 WBC 11.95 H (4.50-10.00) 10*3/uL RBC 3.98 L (4.10-5.20) 10*6/uL Hgb 12.8 (12.0-15.0) g/dL Hct 37.4 (37.2-46.3) % Plt Count 172 (140-440) 10*3/uL Comprehensive Metabolic Panel 02/02/25 Range/Units 00:15 Sodium 136 L (137-145) mmol/L Potassium 3.5 (3.5-5.1) mmol/L Chloride 101 (98-107) mmol/L Carbon Dioxide 27 (22-30) mmol/L BUN 16 (7-17) mg/dL Creatinine 0.66 (0.52-1.04) mg/dL Glucose 113 H (74-99) mg/dL Calcium 8.6 (8.4-10.2) mg/dL AST 33 (14-36) U/L ALT 31 (4-34) U/L Alkaline Phosphatase 82 (38-126) U/L Total Protein 5.4 L (6.3-8.2) g/dL Albumin 2.9 L (3.5-5.0) g/dL Current Medications Generic Name Dose Route Start Last Admin Trade Name Freq PRN Reason Stop Dose Admin Albuterol Sulfate 2.5 mg 02/02/25 12:46 Albuterol Nebulized 2.5 Mg/3 Ml INHALATION RT-Q4H PRN Shortness Of Breath Atorvastatin Calcium 20 mg 02/02/25 21:00 Atorvastatin 20 Mg Tab PO HS [facility] Ceftriaxone Sodium 1,000 mg 02/02/25 04:00 02/02/25 04:30 Ceftriaxone In Swfi 1,000 Mg/10 Ml Syringe IVP 1,000 mg Q24H [facility] Administration Protocol Heparin Sodium (Porcine) 0 unit 02/02/25 00:09 Heparin Sodium 1,000 Un/Ml (10ml Vl) IV PER PROTOCOL PRN Low PTT Protocol Hydrochlorothiazide 25 mg 02/03/25 09:00 Hydrochlorothiazide 25 Mg Tab PO DAILY [facility] Sodium Chloride 1,000 mls @ 75 mls/hr 02/02/25 04:00 02/02/25 12:59 Saline 0.9% IV 75 mls/hr .[id number] [facility] Administration Heparin Sodium/Dextrose 25,000 250 mls @ 0 mls/hr 02/02/25 12:45 02/02/25 12:56 unit/ IV Solution IV 15 units/kg/hr .Q0M [facility] 17.01 mls/hr Administration Protocol Per Protocol Losartan Potassium 50 mg 02/03/25 09:00 Losartan 50 Mg Tab PO DAILY [facility] Naloxone HCl 0.2 mg 02/02/25 03:48 Naloxone 0.4 Mg/Ml 1 Ml Vial IV Q2M PRN Opioid Reversal Pantoprazole Sodium 40 mg 02/02/25 09:00 02/02/25 11:04 Pantoprazole 40 Mg/10 Ml Vial IV 40 mg DAILY [facility] Administration Intake and Output 02/02/25 02/02/25 02/02/25 06:59 14:59 22:59 Intake Total 66.339 504.276 300 Output Total 630 385 Balance 66.339 -125.724 -85 Intake: IV 375 300 Sodium Chloride 0.9% 1, 375 300 000 ml @ 75 mls/hr IV . [id number] [facility] Rx#:[id number] Intake, IV Titration 66.339 129.276 Amount Heparin Sod,Pork in 0.45% 66.339 129.276 NaCl 25,000 unit In 0.45 % NaCl 1 250ml.bag @ 18 UNITS/KG/HR 20.412 mls/hr IV .[id number] [facility] Rx#: [id number] Output: Urine 630 385 Other: Voiding Method Indwelling Catheter Indwelling Catheter Weight 113.4 kg 02/02/25 00:15 02/02/25 00:15
[2025-02-02] MEDS: ATORVASTATIN 20 MG TAB PO SCH (20:30)
--- NOTE | 2025-02-02 20:59 | CA ---
Transthoracic Echo Report Name: Veronica Ribeiro Age: 74 Gender: F : 1950 Exam Date: 02/02/2025 11:17 Exam Location: [place] [facility] Ht (in): 70 Wt (lb): 250 Ordering Physician: Minerva Cohen Attending/Referring Phys: Communications Analyst Angela Sahni KAYLEEN Procedure CPT: Indications: Bilateral PE evaluate for right heart strain Cardiac Hx: Technical Quality: Very technically difficult study Contrast 1: Total Dose (mL): Contrast 2: Total Dose (mL): MEASUREMENTS (Male / Female) Normal Values 2D ECHO LV Diastolic Diameter PLAX 4.3 cm 4.2 - 5.9 / 3.9 - 5.3 cm LV Systolic Diameter PLAX 2.9 cm IVS Diastolic Thickness 1.7 cm 0.6 - 1.0 / 0.6 - 0.9 cm LVPW Diastolic Thickness 1.6 cm 0.6 - 1.0 / 0.6 - 0.9 cm LV Relative Wall Thickness 0.8 RV Internal Dim ED PLAX 3.7 cm LVOT Diameter 2.1 cm LA Systolic Diameter LX 3.0 cm 3.0 - 4.0 / 2.7 - 3.8 cm Ascending Aorta Diameter 4.1 cm M-MODE Aortic Root Diameter MM 3.8 cm AV Cusp Separation MM 1.8 cm DOPPLER AV Peak Velocity 104.3 cm/s AV Peak Gradient 4.3 mmHg LVOT Peak Velocity 78.2 cm/s LVOT Peak Gradient 2.4 mmHg AV Area Cont Eq pk 2.6 cm??? MV Area PHT 4.4 cm??? Mitral E Point Velocity 41.6 cm/s Mitral A Point Velocity 62.8 cm/s Mitral E to A Ratio 0.7 MV Deceleration Time 172.0 ms TR Peak Velocity 267.9 cm/s TR Peak Gradient 28.7 mmHg Right Ventricular Systolic Press 43.7 mmHg FINDINGS Left Ventricle unable to determine left venticular ejection fraction and systolic function due to body habitus and patients condition made patient unable to get into proper positions. Severely increased septal wall thickness. Severely increased posterior wall thickness. Right Ventricle Severely increased basal right ventricular diameter. Moderately increased mid right ventricular diameter, mildly reduced right ventricular global systolic function. . Trebeculation of the right ventricular apex Right Atrium Moderate right atrial dilatation. Left Atrium Left atrium not well visualized. Mitral Valve Mitral valve not well visualized. No mitral stenosis. No mitral regurgitation. Aortic Valve Aortic valve not well visualized. No aortic stenosis. No aortic regurgitation. Tricuspid Valve thickened tricuspid valve ,moderate tricuspid regurgitation. Pulmonic Valve Pulmonic valve not well visualized. Pericardium not well visualized due to patients body habitus and conditon . Aorta dilated aortic root, Mildly dilated proximal ascending aorta. CONCLUSIONS Very technically difficult study. LVEF could not be assessed, appears preserved Severe concentric LVH Hypokinetic RV base with history of Daniels sign from pulmonary embolism Moderate tricuspid regurgitation Previewed by: Dr Russell Quinones (Electronically Signed) Final Date: 02 February 2025 20:59
--- NOTE | 2025-02-02 22:19 | HP ---
HISTORY AND PHYSICAL This is a combined history and physical and discharge summary. CHIEF COMPLAINT: Pulmonary embolism. HISTORY OF PRESENT ILLNESS: This 74-year-old woman with a past medical history of multiple medical problems including dementia, asthma, being followed by Dr. Cooper in [facility], was transferred from [facility] with features of pulmonary embolism. The patient apparently fell out of the wheelchair and hit her head causing a displaced fracture of the nose and left orbital injury, and in the emergency room, the patient was diagnosed to have UTI initially, but on repeat evaluation, the patient had severe saddle embolism and the patient was transferred to [facility] for further evaluation and treatment. The patient is hypoxic also. The patient is confused. Vascular Surgery has seen the patient, recommended transfer to [facility] for further evaluation and treatment at this time. The patient had features of right heart strain also. PAST MEDICAL HISTORY: History of CHF, dementia, GERD. Rest of history and rest of the chart are also reviewed. HOME MEDICATIONS: Desyrel. Dose and rest of medications reviewed. ALLERGIES: Codeine. FAMILY HISTORY: Could not be taken because of change in mental status. SOCIAL HISTORY: Could not be taken because of change in mental status. REVIEW OF SYSTEMS: Could not be taken because of change in mental status. PHYSICAL EXAM: GENERAL: The patient is stuporous. VITAL SIGNS: Pulse 84, blood pressure 96/47, respirations 17. HEENT: Conjunctivae normal, otherwise significant ecchymosis and bruise over the left eye present. Cardiovascular: S1, S2 noted. RESPIRATION: Few scattered rhonchi. ABDOMEN: Soft, nontender. NERVOUS SYSTEM: Could not be examined completely. SKIN: No ulcer, rash, bleeding. Otherwise mentioned earlier. LABORATORY DATA: WBC 7.95. The rest of the labs are reviewed. ASSESSMENT: 1. Acute bilateral saddle pulmonary embolism with possible right heart strain. 2. Right lower extremity deep vein thrombosis. 3. Left orbital ecchymosis with orbital and nasal fracture and fall. 4. Asthma. 5. Dementia. 6. History of gastroesophageal reflux disorder. 7. Hypertension. 8. Hyperlipidemia. 9. Obesity. 10.Full code. 11.Change in mental status, possible metabolic encephalopathy. RECOMMENDATIONS AND DISCUSSION: This 74-year-old woman presented with multiple complex medical issues. At this time, we will monitor the patient closely. I would recommend continuing with IV heparin cautiously, otherwise closely monitor with Vascular Surgery, and I would recommend possible transfer. Once again, the prognosis is currently guarded. Further recommendations to follow. Please refer to the medication record sheet for list of medications. MMODL / IJN: [id number] /
[2025-02-02 23:51] LABS: Magnesium 1.5 mg/dL (1.6-2.3); Potassium 4.5 mmol/L (3.5-5.1)
[2025-02-03] MEDS ORDERED: Magnesium Replacement Protocol 1 EACH MISC MISCELLANE PRN (00:07)
[2025-02-03] MEDS: MAGNESIUM SULFATE-D5W PMX 1 GM in DEXTROSE/WATER 1 100ML.BAG IVPB SCH (00:55)
[2025-02-03 05:54] LABS: Basophils # (A) 0.05 10*3/uL (0.00-0.10); Basophils % (A) 0.5 %; Eosinophils # (A) 0.23 10*3/uL (0.04-0.35); Eosinophils % (A) 2.3 %; HCT 38.4 % (37.2-46.3); HGB 13.0 g/dL (12.0-15.0); Lymphocytes # (A) 0.99 10*3/uL (0.90-5.00); Lymphocytes % (A) 9.8 %; MCH 32.1 pg (27.0-32.0); MCHC 33.9 g/dL (32.0-37.0); MCV 94.8 fL (80.0-97.0); Monocytes # (A) 1.09 10*3/uL (0.20-1.00); Monocytes % (A) 10.8 %; Neutrophils # (A) 7.67 10*3/uL (1.80-7.70); Neutrophils % (A) 76.2 %; Platelet Count 184 10*3/uL (140-440); RBC 4.05 10*6/uL (4.10-5.20); RDW 12.9 % (11.5-14.5); WBC 10.07 10*3/uL (4.50-10.00)
[2025-02-03 06:02] LABS: Glucose,Whole Blood 103 mg/dL (70-110)
[2025-02-03 06:24] LABS: ALT 25 U/L (4-34); AST 30 U/L (14-36); African American GFR (CKD) >90 (>60 ml/min/1.73 sqM); Albumin 2.8 g/dL (3.5-5.0); Alkaline Phosphatase 62 U/L (38-126); Anion Gap 7 mmol/L; Blood Urea Nitrogen 9 mg/dL (7-17); Calcium 7.8 mg/dL (8.4-10.2); Carbon Dioxide 26 mmol/L (22-30); Chloride 103 mmol/L (98-107); Glucose 107 mg/dL (74-99); Non-African American GFR(CKD) >90 (>60 ml/min/1.73 sqM); Potassium 3.6 mmol/L (3.5-5.1); Sodium 136 mmol/L (137-145); Total Protein 5.3 g/dL (6.3-8.2)
[2025-02-03] MEDS: IV FLUID CONTINUATION 1,000 ML IV ONE (07:40)
[2025-02-03] MEDS: LIDOCAINE 1% INJ 10MG/ML (20 ML MDV) SQ ONE (07:55)
[2025-02-03] MEDS: ONDANSETRON 4 MG/2 ML VIAL IVP ONE (08:08)
[2025-02-03] MEDS: IOPAMIDOL-370 100ML BTL INJ ONE (08:30)
[2025-02-03] MEDS: HEPARIN SODIUM 1,000 UN/ML (10ML VL) IVP ONE (08:46)
--- NOTE | 2025-02-03 09:04 | P.OP ---
Date of Procedure: 02/03/25 Preoperative Diagnosis: Bilateral saddle pulmonary embolism with right heart strain Postoperative Diagnosis: Same Procedure(s) Performed: Ultrasound-guided right common femoral vein access Pulmonary angiogram with selective right and left pulmonary artery angiograms Percutaneous thrombectomy with Inari flowtriever with extirpation of clot from right main pulmonary artery Percutaneous thrombectomy with Inari flowtriever with extirpation of clot from r ight truncus anterior Percutaneous thrombectomy with Inari flowtriever with extirpation of clot from right lobar pulmonary artery Percutaneous thrombectomy with Inari flowtriever with extirpation of clot from the left main pulmonary artery Percutaneous thrombectomy with Inari flowtriever with extirpation of the clot from the left lobar pulmonary artery Anesthesia: local Surgeon: Roger Jaramillo Pathology: none sent Condition: stable Disposition: PACU Indications for Procedure: 74-year-old female with history of dementia, heart failure, recent fall and multiple contusions to her face presented yesterday to the hospital from [place] as a transfer secondary to hypoxia and pulmonary embolism. She was taken to the emergency room in [place] originally for urinary tract infection and when she returned to her nursing facility she had increased oxygen demands and then she was sent back and had a CT chest which demonstrated bilateral saddle embolus. She does have elevation of her troponins, was on 15 L yesterday which was concerning to the cellophane casting machine repairer who wanted her transferred at that time but did not want to be transferred and after discussion with the he wanted to go forward with pulmonary thrombectomy this morning. Description of Procedure: After written and informed consent was obtained the patient all risks, benefits and complications were described patient was brought to the Day[facility]giver laid in a supine position. The area of the groins were prepped and draped in usual sterile fashion. Utilizing ultrasound guidance the right common femoral vein was located and shown to be patent without thrombus and then was accessed with a micropuncture kit and utilizing Seldinger technique an 8-Bermudian sheath was placed. 035 guidewire was then advanced into the IVC under fluoroscopic guidance. Track was dilated and the Inari 24-Bermudian sheath was placed. An angled pigtail catheter was then placed and utilizing a J-wire the heart was entered and advanced into the pulmonary artery. Pigtail catheter was then removed over the wire and a JR4 catheter was placed and the right pulmonary artery was entered and wire was placed to the main right pulmonary artery. The wire was then exchanged for an Amplatz wire in normal fashion. Patient was administered heparin at this time. A thrombectomy catheter was then advanced and pulmonary angiogram was obtained demonstrating thrombus within the right main and segmental branches as well as the left main. Mechanical thrombectomy was then performed with aspiration of multiple large clots. Aspiration was performed 4 times. Right pulmonary angiogram was then obtained demonstrating resolution of thrombus within the main pulmonary artery as well as the truncus anterior. Catheter was then selectively placed in the left main pulmonary artery and mechanical thrombectomy was performed 2 times. Pulmonary angiogram was then obtained demonstrating complete resolution of thrombus with good filling to the outer aspects of the long on both sides. Once completed all catheters and wires were removed. A suture was placed in the right groin after the sheath was removed for hemostasis. Patient tolerated procedure well and was sent to recovery.
[2025-02-03 09:29] LABS: Glucose,Whole Blood 112 mg/dL (70-110)
--- NOTE | 2025-02-03 11:40 | P.PN ---
Subjective Progress Note Date: 02/03/25 Principal diagnosis: Acute pulmonary embolism This is a 74-year-old white female with history of multiple medical problems including dementia, hypertension, history of congestive heart failure, patient is normally a resident of [facility], and yesterday she fell out of her chair landing on her face causing displaced fracture of the nose with left orbital injury and laceration. Patient was sent to ER at [place], she had repair of her laceration in the orbital area, she was also diagnosed with urinary tract infection apparently she was discharged back to [facility], and she developed worsening confusion, increased shortness of breath and worsening oxygen demand. Patient was sent back to [facility], and had a CT angiogram of the chest showing severe saddle embolus involving the right lower and left lower lobe with evidence of right heart strain. Hence patient was transferred to [facility], and I saw this patient on consul tation in the ER. Patient clearly has a facial trauma with periorbital edema involving the left eye. And involving her nose. She is on 15 L nonrebreather mask seems to be comfortable, not in distress, ABG showed a pO2 of 101 pCO2 46 pH of 7.39. PTT is 53.2, patient is on heparin. Her WBC count is 11.9 hemoglobin 12.8. Venous Doppler is positive for right deep vein thrombosis. No DVT noted in the left lower extremity. Patient was seen by vascular surgery for possible thrombectomy, echocardiogram is pending. Vascular surgery felt that the patient is not a good candidate for EKOS mostly because of her facial trauma and she will have more risk of bleeding with tPA. Her O2 requirement is relatively high, patient is on nonrebreather mask, hence we will discuss with vascular surgery the possibility of transferring the patient for thrombectomy. The medical service on the case will initiate the process, in the meantime the patient remains on heparin and titrated as per protocol. Patient was seen today on 02/03/2025, patient underwent pulmonary thrombectomy done by vascular surgery this morning, and she is back in the ICU this morning. Presently on heparin. Looks comfortable, is at bedside, patient is now on 15 L high flow nasal cannula and should be placed on a nonrebreather mask. O2 saturation is 100% at present. Patient continues to have significant swelling and hematoma involving her left periorbital region and her upper eyelid. Extending down to the nose and to the upper lip area with bluish discoloration. Suggested evaluation by ophthalmology, however I was made aware that we do not have an foundry metallurgist on-call to evaluate this patient. Considering this picture, I still believe the patient is better off being transferred to another hospital where ophthalmology is available. Her pulmonary issue seems to be partially solved at this point, and she does not need any further invasive procedures for her thromboembolic disease. Nonetheless I am s till concerned about the hematoma that she has and the fact that she will be maintained on blood thinners heparin and eventually Eliquis. Having said this, we will recommend to the admitting service to arrange for transferring this patient to a different institution where ophthalmology is available to evaluate this patient's eye and periorbital edema. In the meantime I discussed with the at bedside her CODE STATUS, and the CODE STATUS has been changed to DNR. Yesterday her transfer was canceled by cardiology and by vascular surgery mostly because her FiO2 requirement was last last night, and vascular surgery clearly stated that they will be doing thrombectomy this morning. At this was already done. However the reason for transfer now will be mostly for ophthalmologic evaluation. Labs today showed WC count of 10 hemoglobin 13.0 PTT is high and the protocol is being followed to maintain therapeutic level of heparin. Her electrolytes are normal renal profile is normal Objective - Vital Signs Vital signs: Vital Signs Temp 98.9 F 02/03/25 04:00 Pulse 90 02/03/25 11:00 Resp 18 02/03/25 11:00 BP 119/47 02/03/25 11:00 Pulse Ox 100 02/03/25 11:00 FiO2 100 02/03/25 11:00 Intake & Output 02/02/25 02/03/25 02/03/25 18:59 06:59 18:59 Intake Total 224.138 7946 527.731 Output Total 1015 625 265 Balance -210.724 625 262.731 Weight 112.8 kg Intake: IV 675 1000 475 Magnesium Sulfate-D5w Pmx 500 100 1 gm In Dextrose/Water 1 100ml.bag @ 100 mls/hr IVPB Q1H [facility] Rx#: [id number] Sodium Chloride 0.9% 1, 675 450 75 000 ml @ 75 mls/hr IV . [id number] [facility] Rx#:[id number] cefTRIAXone 1 gm In 50 Sodium Chloride 0.9% 50 ml @ 100 mls/hr IVPB Q24H [facility] Rx#:[id number] Intake, IV Titration 129.276 250 52.731 Amount Heparin Sod,Pork in 0.45% 129.276 NaCl 25,000 unit In 0.45 % NaCl 1 250ml.bag @ 18 UNITS/KG/HR 20.412 mls/hr IV .[id number] [facility] Rx#: [id number] Heparin Sodium,Porcine/ 250 52.731 D5w 25,000 unit In Empty Bag 1 bag @ Per Protocol IV .Q0M [facility] Rx#:[id number] Output: Urine 1015 625 265 Other: Voiding Method Indwelling Catheter Indwelling Catheter Indwelling Catheter - Exam Physical exam revealed a 74 year-old, in no distress, sedated, as the patient just came back from thrombectomy procedure. She is on high flow nasal cannula. O2 sat is 100%. Head: Evidence of periorbital edema/hematoma and repaired laceration of the julio césar orbital area EENT: Significant periorbital edema and hematoma from recent fall. Chest: Symmetrical chest expansion Lungs: Diminished breath sound bilaterally no crackles rhonchi or wheezes Cardiac: Distant S1-S2, no S3 gallop. Abdomen: Obese, soft nontender no megaly no rebound no guarding good bowel sounds Extremities 1+ bipedal edema good pulses bilaterally. Musculoskeletal: No deformities and no limitation range of motion Neurologic: Patient is lethargic, arousable, patient received sedation earlier for thrombectomy. Psychiatric: Could not assess Skin: As noted above regarding her periorbital swelling and edema/related to recent trauma/fall - Labs CBC & Chem 7: 02/03/25 05:42 02/03/25 05:42 Labs: Abnormal Lab Results - Last 24 Hours (Table) 02/02/25 02/02/25 02/03/25 Range/Units 12:22 23:14 05:42 WBC 10.07 H (4.50-10.00) 10*3/uL RBC 4.05 L (4.10-5.20) 10*6/uL MCH 32.1 H (27.0-32.0) pg MPV 9.4 L (9.5-12.2) fL Monocytes # 1.09 H (0.20-1.00) 10*3/uL APTT 53.2 H (22.0-30.0) sec Sodium (137-145) mmol/L Creatinine (0.52-1.04) mg/dL Glucose (74-99) mg/dL POC Glucose (mg/dL) (70-110) mg/dL Calcium (8.4-10.2) mg/dL Magnesium 1.5 L (1.6-2.3) mg/dL Total Protein (6.3-8.2) g/dL Albumin (3.5-5.0) g/dL 02/03/25 02/03/25 02/03/25 Range/Units 05:42 05:42 09:27 WBC (4.50-10.00) 10*3/uL RBC (4.10-5.20) 10*6/uL MCH (27.0-32.0) pg MPV (9.5-12.2) fL Monocytes # (0.20-1.00) 10*3/uL APTT 161.4 H* (22.0-30.0) sec Sodium 136 L (137-145) mmol/L Creatinine 0.44 L (0.52-1.04) mg/dL Glucose 107 H (74-99) mg/dL POC Glucose (mg/dL) 112 H (70-110) mg/dL Calcium 7.8 L (8.4-10.2) mg/dL Magnesium (1.6-2.3) mg/dL Total Protein 5.3 L (6.3-8.2) g/dL Albumin 2.8 L (3.5-5.0) g/dL Assessment and Plan Assessment: Impression: Acute hypoxic respiratory failure Bilateral saddle embolus with possible right heart strain Right lower extremity SVT and DVT Recent history of trauma with facial laceration and periorbital edema/hematoma secondary to fall History of dementia/Alzheimer's disease History of congestive heart failure unknown ejection fraction Left periorbital edema/hematoma secondary to fall/trauma. Status post thrombectomy for massive pulmonary embolism 02/03/2025. Recommendation: Discussed and reviewed with the patient's at bedside CODE STATUS and he wishes DNR CODE STATUS Advised nursing staff to continue to follow the protocol for heparin and make sure that PTT is in the therapeutic range Advised nursing staff to notify admitting physician about working on transfer for ophthalmologic evaluation/periorbital edema hematoma and the patient will be on long time anticoagulation therapy. If contraindicated Per ophthalmology patient will need to have an IVC filter. In the meantime continue heparin and follow protocol Continue to monitor in the ICU Overall prognosis is definitely poor and guarded. Will continue to follow Time with Patient: Less than 30
[2025-02-03] MEDS: LOSARTAN 50 MG TAB PO SCH (13:50)
[2025-02-03] MEDS: hydroCHLOROthiazide 25 MG TAB PO SCH (13:50)
--- NOTE | 2025-02-03 17:07 | P.PN ---
Subjective Progress Note Date: 02/03/25 HISTORY OF PRESENTING ILLNESS This is a pleasant 74-year-old with past medical history significant for dem entia, hypertension, reported CHF, GERD, depression, asthma. She does not follow with a oracle database developer. History is supplied by and chart with patient and A+O x 1. Patient initially had a reported mechanical fall while at [facility]. states over the last 2-3 months she has not been eating and had become weaker and after initial hospitalization had been placed in rehab for a few weeks. Usually at home with . At rehab she had mechanical fall sliding over and did not brace herself with significant hematoma over left eyelid. She was evaluated in ER and sent back to rehab. Later at rehab she was found to have significant increasing oxygen demands with some confusion. She went to [facility] and workup showed mildly elevated troponin 0.3. CT PE protocol showed bilateral PE with saddle PE and increased RV:LV ratio. She was placed on heparin, requiried 15L Ventimask and transported to [facility]. She has been hemodynamically stable. Vascular surgery was consulted for PE. Preliminary echo showed preserved EF with some increased RV size and mild RV hypokinesis, RVSP 43. Oxygen walked down to 5L and sating at 93%. She denies any chest pain or pressure. + mild SOB. Venous US shows + GSV on right and likely + right DVT. Progress Note Doing well, no new complaints cardiac mack Underwent thrombectomy , no complications vascular mack On heparin drip still has left eye socket hematoma HD stable PHYSICAL EXAMINATION Vital signs reviewed. CONSTITUTIONAL: No apparent distress, +echymosis of left eye with hematoma HEENT: Head is normocephalic. Pupils are equal, round. Sclerae anicteric. Mucous membranes of the mouth are moist. No JVD. No carotid bruit. CHEST EXAMINATION: Lungs are clear to auscultation. No chest wall tenderness is noted on palpation or with deep breathing. HEART EXAMINATION: Regular rate and rhythm. S1, S2 heard. No murmurs, gallops or rub. ABDOMEN: Soft, nontender. Positive bowel sounds. EXTREMITIES: 2+ peripheral pulses, no lower extremity edema and no calf tenderness. NEUROLOGIC EXAMINATION: Patient is awake, alert and oriented x1. ASSESSMENT Submassive PE with elevated troponins and RV strain Recent fall with severe left eye echymosis/ hematoma NSTEMI related to PE Dementia, appears at baseline, pleasantly confused Hypertension Reported CHF Acute on chronic respiratory failure Recent mechanical fall Recent hospitalization for decreased appetite, apparently somewhat improving in rehab DVT PLAN Continue with IV heparin Monitor for any worsening of eye hematoma NSTEMI appears type 2 mechanism related to PE Await 2D echo cardio will sign off recommend o/p f/u with primary oracle database developer Objective - Vital Signs Vital signs: Vital Signs Temp 98.3 F 02/03/25 16:00 Pulse 92 02/03/25 16:00 Resp 19 02/03/25 16:00 BP 94/47 02/03/25 16:00 Pulse Ox 99 02/03/25 16:00 FiO2 10 02/03/25 16:00 Intake & Output 02/02/25 02/03/25 02/03/25 18:59 06:59 18:59 Intake Total 190.802 2038 1066.863 Output Total 1015 625 540 Balance -210.724 625 526.863 Weight 112.8 kg Intake: IV 675 1000 925 Magnesium Sulfate-D5w Pmx 500 100 1 gm In Dextrose/Water 1 100ml.bag @ 100 mls/hr IVPB Q1H [facility] Rx#: [id number] Sodium Chloride 0.9% 1, 675 450 525 000 ml @ 75 mls/hr IV . [id number] [facility] Rx#:[id number] cefTRIAXone 1 gm In 50 Sodium Chloride 0.9% 50 ml @ 100 mls/hr IVPB Q24H [facility] Rx#:[id number] Intake, IV Titration 129.276 250 141.863 Amount Heparin Sod,Pork in 0.45% 129.276 NaCl 25,000 unit In 0.45 % NaCl 1 250ml.bag @ 18 UNITS/KG/HR 20.412 mls/hr IV .[id number] [facility] Rx#: [id number] Heparin Sodium,Porcine/ 250 141.863 D5w 25,000 unit In Empty Bag 1 bag @ Per Protocol IV .Q0M [facility] Rx#:[id number] Output: Urine 1015 625 540 Other: Voiding Method Indwelling Catheter Indwelling Catheter Indwelling Catheter - Labs CBC & Chem 7: 02/03/25 05:42 02/03/25 05:42 Labs: Abnormal Lab Results - Last 24 Hours (Table) 02/02/25 02/03/25 02/03/25 Range/Units 23:14 05:42 05:42 WBC 10.07 H (4.50-10.00) 10*3/uL RBC 4.05 L (4.10-5.20) 10*6/uL MCH 32.1 H (27.0-32.0) pg MPV 9.4 L (9.5-12.2) fL Monocytes # 1.09 H (0.20-1.00) 10*3/uL APTT (22.0-30.0) sec Sodium 136 L (137-145) mmol/L Creatinine 0.44 L (0.52-1.04) mg/dL Glucose 107 H (74-99) mg/dL POC Glucose (mg/dL) (70-110) mg/dL Calcium 7.8 L (8.4-10.2) mg/dL Magnesium 1.5 L (1.6-2.3) mg/dL Total Protein 5.3 L (6.3-8.2) g/dL Albumin 2.8 L (3.5-5.0) g/dL 02/03/25 02/03/25 02/03/25 Range/Units 05:42 09:27 16:16 WBC (4.50-10.00) 10*3/uL RBC (4.10-5.20) 10*6/uL MCH (27.0-32.0) pg MPV (9.5-12.2) fL Monocytes # (0.20-1.00) 10*3/uL APTT 161.4 H* 86.9 H (22.0-30.0) sec Sodium (137-145) mmol/L Creatinine (0.52-1.04) mg/dL Glucose (74-99) mg/dL POC Glucose (mg/dL) 112 H (70-110) mg/dL Calcium (8.4-10.2) mg/dL Magnesium (1.6-2.3) mg/dL Total Protein (6.3-8.2) g/dL Albumin (3.5-5.0) g/dL
[2025-02-03 17:18] LABS: Glucose,Whole Blood 105 mg/dL (70-110)
--- NOTE | 2025-02-03 18:59 | CT ---
EXAMINATION TYPE: CT brain wo con DATE OF EXAM: 02/03/2025 6:45 PM COMPARISON: None.. CLINICAL INDICATION: Female, 74 years old with history of fall and orbital hematoma, fall TECHNIQUE: Brain: Axial CT images of the brain were obtained with coronal and sagittal reformats created and rev iewed. Contrast used: None. Oral contrast used: None. CT DLP: 1186 mGycm, Automated exposure control for dose reduction was used. FINDINGS: Brain: Extra-axial spaces: No abnormal extra-axial fluid collections. Ventricular system: Within normal limits Cerebral parenchyma: No acute intraparenchymal hemorrhage or mass effect. The germain-white junction is well differentiated. Scattered hypoattenuating areas are seen within the white matter. Cerebellum: Unremarkable. Mass effect: No evidence of midline shift. Intracranial vasculature: unremarkable Soft tissues: Large left forehead/periorbital hematoma Calvarium/osseous structures: No depressed skull fracture. Paranasal sinuses and mastoid air cells: Mild scattered paranasal sinus disease. Visualized orbits: Orbital contents are intact. IMPRESSION: Large left forehead/periorbital hematoma without acute intracranial abnormality identified. [facility], , 02/03/2025 6:57 PM
--- NOTE | 2025-02-03 19:05 | CT ---
EXAMINATION TYPE: CT orbits wo con DATE OF EXAM: 02/03/2025 6:45 PM COMPARISON: None. CLINICAL INDICATION: Female, 74 years old with history of left orbital hematoma; PHH, fall, orbital h ematoma TECHNIQUE: Orbits: Axial CT with coronal and sagittal reformats through the orbits. No IV or oral contrast was u tilized. CT DLP: 422.7 mGycm, Automated exposure control for dose reduction was used. Findings: Large left preseptal periorbital hematoma without evidence of extension into the intraconal fat of th e left orbit. Bilateral globes appear intact. No evidence of globe rupture. Possible age-indeterminat e nasal bone fracture. Paranasal sinuses and mastoid air cells are patent. No additional evidence of an acute facial bone fracture. Pterygoid processes are intact. Visualized portion of the calvarium is intact. Previous bilateral cataract lens extraction noted. Additional left facial soft tissue swelli ng. No unexpected radiopaque foreign body. IMPRESSION: 1. Large preseptal left periorbital hematoma without evidence of globe rupture or involvement of the intraconal fat. 2. Age-indeterminate nasal bone fracture. Recommend clinical correlation. Otherwise, no additional a cute facial bone fracture identified. [facility], , 02/03/2025 7:02 PM
[2025-02-03 23:25] LABS: Glucose,Whole Blood 101 mg/dL (70-110)
--- NOTE | 2025-02-04 03:02 | PN ---
PROGRESS NOTE DATE OF SERVICE: 02/03/2025 HISTORY OF PRESENT ILLNESS: This 74-year-old woman, who was admitted with acute bilateral saddle pulmonary embolism, also had a possible right heart strain. Dr. Jaramillo performed pulmonary angiogram with percutaneous thrombectomy. The patient is on IV heparin. The patient had multiple complex medical issues including hematoma around the left eye. The patient continues to be stuporous. The patient apparently was supposed to be transferred to [facility] and transfer has been done per Manuela Esteves, the nurse practitioner, but however, the family refused and [facility] was called and the transfer was canceled. This was obtained after talking to multiple several hospitals including [facility], [facility] and [facility] was completely closed to any intake at that time. PAST MEDICAL HISTORY: Reviewed. REVIEW OF SYSTEMS: Were not taken. CURRENT MEDICATIONS: Reviewed. PHYSICAL EXAMINATION: VITAL SIGNS: Pulse is 92, blood pressure 140/65, and respirations 20. HEENT: Conjunctivae normal. ecchymosis around the left eye. CARDIOVASCULAR: S1 and S2. RESPIRATION: Breath sounds diminished at the bases. ABDOMEN: Soft. NERVOUS SYSTEM: Diffusely weak. LABORATORY DATA: Reviewed. ASSESSMENT: 1. Acute bilateral static pulmonary embolism with possible right heart strain, status post percutaneous thrombectomy with urinary flow retriever. 2. Right lower extremity deep vein thrombosis. 3. Left orbital ecchymosis with orbital nasal fracture and fall. 4. History of asthma. 5. History of dementia. 6. History of gastroesophageal reflux disease. 7. Hypertension. 8. Hyperlipidemia. 9. Obesity. 10.Change in mental status, possible acute metabolic encephalopathy. 11.No code, no cardiopulmonary resuscitation, no vent. RECOMMENDATION: Recommend in this 74-year-old woman, who presents with multiple complex medical issues. We will continue to monitor current medications, symptomatic treatment, and the prognosis maybe guarded because of multiple complex medical issues and closely follow with multiple consultants and as mentioned earlier. The patient's refused to transfer. Further recommendations to follow. MMODL / IJN: [id number] /
[2025-02-04 06:00] LABS: Basophils # (A) 0.04 10*3/uL (0.00-0.10); Basophils % (A) 0.5 %; Eosinophils # (A) 0.21 10*3/uL (0.04-0.35); Eosinophils % (A) 2.7 %; HCT 31.6 % (37.2-46.3); HGB 10.3 g/dL (12.0-15.0); Lymphocytes # (A) 0.90 10*3/uL (0.90-5.00); Lymphocytes % (A) 11.6 %; MCH 31.6 pg (27.0-32.0); MCHC 32.6 g/dL (32.0-37.0); MCV 96.9 fL (80.0-97.0); Monocytes # (A) 0.84 10*3/uL (0.20-1.00); Monocytes % (A) 10.8 %; Neutrophils # (A) 5.76 10*3/uL (1.80-7.70); Neutrophils % (A) 73.9 %; Platelet Count 161 10*3/uL (140-440); RBC 3.26 10*6/uL (4.10-5.20); RDW 13.2 % (11.5-14.5); WBC 7.79 10*3/uL (4.50-10.00)
[2025-02-04 06:30] LABS: African American GFR (CKD) >90 (>60 ml/min/1.73 sqM); Anion Gap 3 mmol/L; Blood Urea Nitrogen 9 mg/dL (7-17); Calcium 7.5 mg/dL (8.4-10.2); Carbon Dioxide 29 mmol/L (22-30); Chloride 104 mmol/L (98-107); Glucose 95 mg/dL (74-99); Magnesium 2.1 mg/dL (1.6-2.3); Non-African American GFR(CKD) >90 (>60 ml/min/1.73 sqM); Potassium 3.4 mmol/L (3.5-5.1); Sodium 136 mmol/L (137-145)
[2025-02-04] MEDS ORDERED: Potassium Replacement Protocol 1 EACH MISC MISCELLANE PRN (06:55)
[2025-02-04] MEDS: POTASSIUM CHLORIDE ER 20 MEQ TAB.ER PO SCH (08:24)
[2025-02-04] MEDS: POTASSIUM CHLORIDE 10 MEQ in WATER FOR INJECTION 1 100ML.BAG IVPB SCH (09:03)
--- NOTE | 2025-02-04 11:04 | P.PN ---
Subjective Progress Note Date: 02/04/25 Principal diagnosis: Acute pulmonary embolism This is a 74-year-old white female with history of multiple medical problems including dementia, hypertension, history of congestive heart failure, patient is normally a resident of [facility], and yesterday she fell out of her chair landing on her face causing displaced fracture of the nose with left orbital injury and laceration. Patient was sent to ER at [place], she had repair of her laceration in the orbital area, she was also diagnosed with urinary tract infection apparently she was discharged back to auto mode, and she developed worsening confusion, increased shortness of breath and worsening oxygen demand. Patient was sent back to [facility], and had a CT angiogram of the chest showing severe saddle embolus involving the right lower and left lower lobe with evidence of right heart strain. Hence patient was transferred to [facility], and I saw this patient on consul tation in the ER. Patient clearly has a facial trauma with periorbital edema involving the left eye. And involving her nose. She is on 15 L nonrebreather mask seems to be comfortable, not in distress, ABG showed a pO2 of 101 pCO2 46 pH of 7.39. PTT is 53.2, patient is on heparin. Her WBC count is 11.9 hemoglobin 12.8. Venous Doppler is positive for right deep vein thrombosis. No DVT noted in the left lower extremity. Patient was seen by vascular surgery for possible thrombectomy, echocardiogram is pending. Vascular surgery felt that the patient is not a good candidate for EKOS mostly because of her facial trauma and she will have more risk of bleeding with tPA. Her O2 requirement is relatively high, patient is on nonrebreather mask, hence we will discuss with vascular surgery the possibility of transferring the patient for thrombectomy. The medical service on the case will initiate the process, in the meantime the patient remains on heparin and titrated as per protocol. Patient was seen today on 02/03/2025, patient underwent pulmonary thrombectomy done by vascular surgery this morning, and she is back in the ICU this morning. Presently on heparin. Looks comfortable, is at bedside, patient is now on 15 L high flow nasal cannula and should be placed on a nonrebreather mask. O2 saturation is 100% at present. Patient continues to have significant swelling and hematoma involving her left periorbital region and her upper eyelid. Extending down to the nose and to the upper lip area with bluish discoloration. Suggested evaluation by ophthalmology, however I was made aware that we do not have an business developer on-call to evaluate this patient. Considering this picture, I still believe the patient is better off being transferred to another hospital where ophthalmology is available. Her pulmonary issue seems to be partially solved at this point, and she does not need any further invasive procedures for her thromboembolic disease. Nonetheless I am s till concerned about the hematoma that she has and the fact that she will be maintained on blood thinners heparin and eventually Eliquis. Having said this, we will recommend to the admitting service to arrange for transferring this patient to a different institution where ophthalmology is available to evaluate this patient's eye and periorbital edema. In the meantime I discussed with the at bedside her CODE STATUS, and the CODE STATUS has been changed to DNR. Yesterday her transfer was canceled by cardiology and by vascular surgery mostly because her FiO2 requirement was last last night, and vascular surgery clearly stated that they will be doing thrombectomy this morning. At this was already done. However the reason for transfer now will be mostly for ophthalmologic evaluation. Labs today showed WC count of 10 hemoglobin 13.0 PTT is high and the protocol is being followed to maintain therapeutic level of heparin. Her electrolytes are normal renal profile is normal Patient was seen today on 02/04/2025, patient remains in the ICU, on 3 L nasal cannula, her FiO2 requirement has gone down significantly since she underwent thrombectomy for saddle pulmonary embolism and RV strain. Patient was on heparin and the plan is to transition the patient to either Lovenox subcu or Eliquis considering her mental status and the patient is unable to swallow at this point, I will choose Lovenox 1 mg/kg every 12 hours subcu for treatment of her DVT/pulmonary embolism. refused transfer yesterday, hence the patient is staying here in our institution, her CODE STATUS has been changed to DNR, and I believe considering her overall comorbidities and her overall condition, needs to be approached possibly about hospice and comfort care. This may not be inappropriate. Labs reviewed WBC 7.7 hemoglobin 10.3 electrolytes are normal except for low potassium of 3.4. Patient is laying in bed, lethargic, not in any distress. Her periorbital hematoma seems to be sma ller. Objective - Vital Signs Vital signs: Vital Signs Temp 98.2 F 02/04/25 08:00 Pulse 84 02/04/25 10:00 Resp 11 L 02/04/25 10:00 BP 115/56 02/04/25 10:00 Pulse Ox 96 02/04/25 10:00 FiO2 10 02/03/25 16:00 Intake & Output 02/03/25 02/04/25 02/04/25 18:59 06:59 18:59 Intake Total 2074.519 4707.276 304.682 Output Total 605 385 100 Balance 611.863 672.276 204.682 Weight 118.2 kg Intake: IV 1075 950 225 Magnesium Sulfate-D5w Pmx 100 1 gm In Dextrose/Water 1 100ml.bag @ 100 mls/hr IVPB Q1H [facility] Rx#: [id number] Sodium Chloride 0.9% 1, 675 900 225 000 ml @ 75 mls/hr IV . [id number] [facility] Rx#:[id number] cefTRIAXone 1 gm In 50 Sodium Chloride 0.9% 50 ml @ 100 mls/hr IVPB Q24H [facility] Rx#:[id number] Intake, IV Titration 141.863 107.276 79.682 Amount Heparin Sodium,Porcine/ 141.863 107.276 79.682 D5w 25,000 unit In Empty Bag 1 bag @ Per Protocol IV .Q0M [facility] Rx#:[id number] Oral 0 Output: Urine 605 385 100 Other: Voiding Method Indwelling Catheter Indwelling Catheter Indwelling Catheter # Voids 1 - Exam Physical exam revealed a 74 year-old, in no distress, lethargic, on 3 L nasal cannula, not in any distress. Head: Evidence of periorbital edema/hematoma and repaired laceration of the p eriorbital area the area of the swelling seems to be much better today compared to yesterday. EENT: Significant periorbital edema and hematoma from recent fall. Improving steadily. Chest: Symmetrical chest expansion Lungs: Diminished breath sound bilaterally no crackles rhonchi or wheezes Cardiac: Distant S1-S2, no S3 gallop. Abdomen: Obese, soft nontender no megaly no rebound no guarding good bowel sounds Extremities 1+ bipedal edema good pulses bilaterally. Musculoskeletal: No deformities and no limitation range of motion Neurologic: Patient is lethargic, barely arousable Psychiatric: Could not assess, patient is lethargic, barely arousable, could not assess psychiatric status. Skin: As noted above regarding her periorbital swelling and edema/related to recent trauma/fall - Labs CBC & Chem 7: 02/04/25 05:45 02/04/25 05:45 Labs: Abnormal Lab Results - Last 24 Hours (Table) 02/03/25 02/03/25 02/04/25 Range/Units 16:16 23:27 05:45 RBC 3.26 L (4.10-5.20) 10*6/uL Hgb 10.3 L (12.0-15.0) g/dL Hct 31.6 L (37.2-46.3) % MPV 9.1 L (9.5-12.2) fL APTT 86.9 H 71.4 H (22.0-30.0) sec Sodium (137-145) mmol/L Potassium (3.5-5.1) mmol/L Creatinine (0.52-1.04) mg/dL Calcium (8.4-10.2) mg/dL 02/04/25 02/04/25 Range/Units 05:45 05:45 RBC (4.10-5.20) 10*6/uL Hgb (12.0-15.0) g/dL Hct (37.2-46.3) % MPV (9.5-12.2) fL APTT 42.5 H (22.0-30.0) sec Sodium 136 L (137-145) mmol/L Potassium 3.4 L (3.5-5.1) mmol/L Creatinine 0.48 L (0.52-1.04) mg/dL Calcium 7.5 L (8.4-10.2) mg/dL Assessment and Plan Assessment: Impression: Acute hypoxic respiratory failure Bilateral saddle embolus with possible right heart strain, status post thrombectomy by vascular surgery Right lower extremity SVT and DVT Recent history of trauma with facial laceration and periorbital edema/hematoma secondary to fall History of dementia/Alzheimer's disease History of congestive heart failure unknown ejection fraction Left periorbital edema/hematoma secondary to fall/trauma. Status post thrombectomy for massive pulmonary embolism 02/03/2025. Recommendation: Could transfer patient to medical floor today/cardiac Discontinue heparin and start patient on Lovenox subcu 1 mg/kg every 12 hours twice daily Continue DNR CODE STATUS Consider comfort care measures if is agreeable/hospice at home. Overall prognosis is definitely poor and guarded. Will continue to follow Time with Patient: Less than 30
[2025-02-04] MEDS: ENOXAPARIN 120 MG/0.8 ML SYRINGE SQ SCH (12:04)
[2025-02-04 19:04] LABS: Glucose,Whole Blood 104 mg/dL (70-110)
--- NOTE | 2025-02-05 04:29 | PN ---
PROGRESS NOTE DATE OF SERVICE: 02/04/2025 SUBJECTIVE: This 74-year-old woman was admitted with significant bilateral saddle pulmonary embolism, had thrombectomy by Dr. Jaramillo. The patient also had significant hematoma from fall, but orbital x-ray did not show any globe abnormalities. The patient was initially being approved for transfer to [facility] after multiple calls, however, the declined at that time and currently the patient being closely monitored. had multiple discussions and currently the patient is no code and the patient is closely monitored. Lovenox has been recommended at this time by Dr. Jaramillo. PAST MEDICAL HISTORY: Reviewed. REVIEW OF SYSTEMS: Not taken. CURRENT MEDICATIONS: Reviewed. PHYSICAL EXAMINATION: VITAL SIGNS: Pulse is 84, blood pressure 115/64, and respirations 11. HEENT: Conjunctivae normal. Eyes, significant variable hematoma present otherwise. CARDIOVASCULAR: S1, S2. RESPIRATION: A few scattered rhonchi. ABDOMEN: Soft. NERVOUS SYSTEM: Diffusely weak. LABORATORY DATA: Reviewed. ASSESSMENT: 1. Acute bilateral saddle pulmonary embolism with possible right heart strain, status post percutaneous thrombectomy by the Vascular Surgery. 2. Right lower extremity deep vein thrombosis. 3. Left periorbital ecchymosis with orbital nasal fracture and fall history. 4. History of asthma. 5. Dementia. 6. History of gastroesophageal reflux disease. 7. Hypertension. 8. Hyperlipidemia. 9. Gait dysfunction. 10.Obesity. 11.Change in mental status with acute metabolic encephalopathy. 12.No code, no CPR, no vent. RECOMMENDATIONS: Recommend to continue current medications. Symptomatic heparin has been stopped. I would recommend to continue with Lovenox. We will continue to monitor. Also, recommend Hematology/Oncology evaluation. Otherwise, closely follow with multiple consultants as mentioned. Prognosis extremely guarded. Further recommendations to follow. See orders for details. MMODL / IJN: [id number] /
[2025-02-05] MEDS: MORPHINE SULFATE 2 MG/ML SYRINGE IVP PRN (05:57)
[2025-02-05 06:58] LABS: African American GFR (CKD) >90 (>60 ml/min/1.73 sqM); Anion Gap 6 mmol/L; Blood Urea Nitrogen 13 mg/dL (7-17); Calcium 7.9 mg/dL (8.4-10.2); Carbon Dioxide 22 mmol/L (22-30); Chloride 111 mmol/L (98-107); Glucose 93 mg/dL (74-99); Non-African American GFR(CKD) >90 (>60 ml/min/1.73 sqM); Potassium 4.5 mmol/L (3.5-5.1); Sodium 139 mmol/L (137-145)
[2025-02-05 10:38] LABS: Basophils # (A) 0.03 10*3/uL (0.00-0.10); Basophils % (A) 0.4 %; Eosinophils # (A) 0.07 10*3/uL (0.04-0.35); Eosinophils % (A) 0.9 %; HCT 30.2 % (37.2-46.3); HGB 10.0 g/dL (12.0-15.0); Lymphocytes # (A) 0.92 10*3/uL (0.90-5.00); Lymphocytes % (A) 11.4 %; MCH 31.7 pg (27.0-32.0); MCHC 33.1 g/dL (32.0-37.0); MCV 95.9 fL (80.0-97.0); Monocytes # (A) 0.86 10*3/uL (0.20-1.00); Monocytes % (A) 10.6 %; Neutrophils # (A) 6.15 10*3/uL (1.80-7.70); Neutrophils % (A) 76.1 %; Platelet Count 182 10*3/uL (140-440); RBC 3.15 10*6/uL (4.10-5.20); RDW 13.2 % (11.5-14.5); WBC 8.08 10*3/uL (4.50-10.00)
--- NOTE | 2025-02-05 11:56 | P.PN ---
Subjective Progress Note Date: 02/05/25 Principal diagnosis: Bilateral saddle PE with right heart strain Patient is seen and examined today as a follow-up. She is post percutaneous pulmonary thrombectomy with Inari. Patient denies any shortness of breath or chest pain. She is on 2 L of nasal cannula with oxygen saturation at 98%. Patient has been transition to Lovenox currently at 120 mg every 12 hours. Patient has also been made a no code. Objective - Vital Signs Vital signs: Vital Signs Temp 97.6 F 02/05/25 06:53 Pulse 85 02/05/25 06:53 Resp 17 02/05/25 06:53 BP 120/64 02/05/25 06:53 Pulse Ox 98 02/05/25 06:53 FiO2 10 02/03/25 16:00 Intake & Output 02/04/25 02/05/25 02/05/25 18:59 06:59 18:59 Intake Total 1054.682 300 Output Total 475 Balance 579.682 300 Weight 119.4 kg Intake: IV 975 Sodium Chloride 0.9% 1, 975 000 ml @ 75 mls/hr IV . [id number] [facility] Rx#:[id number] Intake, IV Titration 79.682 Amount Heparin Sodium,Porcine/ 79.682 D5w 25,000 unit In Empty Bag 1 bag @ Per Protocol IV .Q0M [facility] Rx#:[id number] Oral 300 Output: Urine 475 Other: Voiding Method Indwelling Catheter Indwelling Catheter - Exam General appearance: The patient is alert, oriented, appears in no acute distress. HET: Head is normocephalic with traumatic injury to face. Patient with bilateral black eyes and bruising across her nose and neck, left periorbital swelling and bruising. Neck: Supple. Heart: Regular. Lungs: Equal expansion, normal respiratory effort. Abdomen: Soft, nontender, nondistended. Extremities: Right groin access site with suture, easily removed. Ecchymosis in groin and pelvis which is soft, no hematoma noted. Neurological: No focal deficits. Strength and sensation are grossly intact. - Labs CBC & Chem 7: 02/05/25 10:11 02/05/25 06:08 Labs: Abnormal Lab Results - Last 24 Hours (Table) 02/05/25 Range/Units 06:08 Chloride 111 H (98-107) mmol/L Creatinine 0.50 L (0.52-1.04) mg/dL Calcium 7.9 L (8.4-10.2) mg/dL Assessment and Plan Assessment: 1. Bilateral saddle embolus with right heart strain status post percutaneous pulmonary thrombectomy with Inar 2. Right lower extremity SVT and DVT 3. Face/head trauma out of wheelchair at long-term care facility on 02/01/2025 4. Long history of asthma, lung disease per patient's 5. Dementia/Alzheimer's disease 6. History of heart failure Plan: 1. Patient is status post pulmonary thrombectomy with Inari 2. Continue anticoagulation per recommendations 3. There is no further vascular surgical intervention indicated 4. Rest of medical management per primary medical team Thank you for this consultation, we will sign off at this time. The impression and plan of care has been dictated as directed. Dr. Jaramillo I performed a history and examination of this patient, discussed the same with the dictator. I agree with the dictator's note ,documented as a scribe. Any additional findings or plans will be noted.
--- NOTE | 2025-02-05 12:45 | P.CONS ---
History of Present Illness - Reason for Consult Consult date: 02/04/25 Pulmonary embolism Requesting physician: Rubi Cantu - History of Present Illness 74-year-old female with PMH significant for multiple medical problems including dementia, hypertension, history of CAD, she is a resident at [facility]. She is apparently wheelchair-bound and there is limited mobility endorsed. Apparently, prior to arrival to [facility] she had fallen out of her chair landing on her face causing a displaced fracture of the nose with left orbital injury and laceration. Originally, she had presented to the ED at [place], where she had a repair of the laceration of her right area and was diagnosed with a UTI and was discharged back to her F. She developed worsening confusion, worsening shortness of breath as well as worsening oxygenation status. She had been sent back to [facility], at which time she had a CT angiography of the chest which showed severe saddle pulmonary embolus involving the right lower and left lower lobe with evidence of right heart strain. She was then transferred to [facility]. On 02/03/2025 she underwent percutaneous thrombectomy with Dr. Jaramillo. She tolerated the procedure well, and has been resting comfortably on room air without complaints of difficulty breathing. Overall, the patient is very poor historian and there is no family at bedside to obtain additional history. To our knowledge, there is no known history of malignancy or hematologic disorder. Review of Systems REVIEW OF SYSTEMS: All systems reviewed, pertinent positives and negatives noted in HPI. All other symptoms are negative. Past Medical History Past Medical History: Heart Failure, Dementia, GERD/Reflux, Hyperlipidemia, Hypertension History of Any Multi-Drug Resistant Organisms: None Reported Past Surgical History: No Surgical Hx Reported Past Anesthesia/Blood Transfusion Reactions: No Reported Reaction Past Psychological History: Depression Smoking Status: Never smoker Medications and Allergies Home Medications Medication Instructions Recorded Confirmed Type Albuterol Nebulized [Ventolin 2.5 mg INHALATION RT-Q4H PRN 02/02/25 02/02/25 History Nebulized] Aspirin 81 mg PO DAILY 02/02/25 02/02/25 History Atorvastatin [Lipitor] 20 mg PO HS 02/02/25 02/02/25 History Calcium Carbonate/Vitamin D3 2 tab PO BID 02/02/25 02/02/25 History [Calcium 500 mg-Vit D3 5 mcg (200 Unit)] Famotidine [Pepcid] 20 mg PO DAILY 02/02/25 02/02/25 History Losartan [Cozaar] 50 mg PO DAILY 02/02/25 02/02/25 History Magnesium Hydroxide [Milk of 2,400 mg PO Q48H PRN 02/02/25 02/02/25 History Magnesia] Memantine [Namenda] 5 mg PO DAILY 02/02/25 02/02/25 History Montelukast [Singulair] 10 mg PO DAILY 02/02/25 02/02/25 History Potassium Citrate [Potassium 20 meq PO BID@0800,1700 02/02/25 02/02/25 History Citrate ER] Sennosides/Docusate Sodium [Senna 2 tab PO DAILY 02/02/25 02/02/25 History Plus 8.6-50 mg Tablet] Venlafaxine HCl ER [Effexor Xr] 150 mg PO DAILY 02/02/25 02/02/25 History bisacodyL [Dulcolax] 10 mg RECTAL Q72H PRN 02/02/25 02/02/25 History clonazePAM 0.5 mg PO DAILY 02/02/25 02/02/25 History hydroCHLOROthiazide [Hydrodiuril] 25 mg PO DAILY 02/02/25 02/02/25 History risperiDONE [RisperDAL] 1 mg PO BID 02/02/25 02/02/25 History traZODone HCL [Desyrel] 50 mg PO HS 02/02/25 02/02/25 History Allergies Allergy/AdvReac Type Severity Reaction Status Date / Time codeine Allergy Unknown Verified 02/02/25 10:17 Penicillins Allergy Unknown Verified 02/02/25 10:17 Sulfa (Sulfonamide Allergy Unknown Verified 02/02/25 10:17 Antibiotics) Physical Exam Vitals: Vital Signs Temp Pulse Pulse Pulse Resp BP BP 02/05/25 06:53 97.6 F 85 17 120/64 02/05/25 02:00 97.4 F L 77 16 118/60 02/05/25 00:00 98.4 F 77 17 115/70 02/04/25 20:00 98.0 F 84 17 138/62 02/04/25 19:00 86 17 122/65 02/04/25 18:00 88 18 139/71 02/04/25 17:00 88 16 127/61 02/04/25 16:00 98.7 F 80 12 129/61 02/04/25 15:00 89 20 141/55 02/04/25 14:00 84 16 134/74 02/04/25 13:00 77 17 127/54 Pulse Ox 02/05/25 06:53 98 02/05/25 02:00 96 02/05/25 00:00 95 02/04/25 20:00 99 02/04/25 19:00 98 02/04/25 18:00 98 02/04/25 17:00 98 02/04/25 16:00 98 02/04/25 15:00 96 02/04/25 14:00 97 02/04/25 13:00 97 Intake and Output 02/04/25 02/05/25 02/05/25 22:59 06:59 14:59 Intake Total 750 300 Output Total 375 Balance 375 300 Intake: IV 750 Sodium Chloride 0.9% 1, 750 000 ml @ 75 mls/hr IV . [id number] [facility] Rx#:[id number] Oral 300 Output: Urine 375 Other: Voiding Method Indwelling Catheter Indwelling Catheter Weight 119.4 kg Physical Exam: General: nontoxic, no distress, appears at stated age Derm: warm, dry, intact Head: atraumatic, normocephalic, symmetric Eyes: Bruising bilaterally, with evidence of large laceration above the left eye; sutures intact, without drainage or erythema Mouth: Lips with noted bruising, purpleish discoloration, mucus membranes moist Cardiovascular: S1 S2 reg, no murmur, rubs, or gallops Lungs: CTA bilateral, no rales, no accessory muscle use Abdominal: soft, non-tender to palpataion, no appreciable organomegaly Extremities: No edema, erythema Neuro: Alert but not oriented, CNII-XII grossly intact, unable to assess gait Psych: well appearing, appropriate affect; somber and overly apologetic Results CBC & Chem 7: 02/05/25 10:11 02/05/25 06:08 Labs: Abnormal Lab Results - Last 24 Hours (Table) 02/05/25 02/05/25 Range/Units 06:08 10:11 RBC 3.15 L (4.10-5.20) 10*6/uL Hgb 10.0 L (12.0-15.0) g/dL Hct 30.2 L (37.2-46.3) % MPV 9.0 L (9.5-12.2) fL Immature Gran # 0.05 H (0.00-0.04) 10*3/uL Chloride 111 H (98-107) mmol/L Creatinine 0.50 L (0.52-1.04) mg/dL Calcium 7.9 L (8.4-10.2) mg/dL Assessment and Plan Assessment: #DVT and saddle PE, unclear if provoked or unprovoked - Immobility and limited ambulation secondary to being wheelchair-bound - Continue current anticoagulation with Lovenox 120 mg every 12 hours, is appropriate - Considering her current immobility status and being wheelchair-bound, consider lifetime anticoagulation upon discharge - If IV Lovenox becomes cumbersome, consider alternative therapy with Eliquis or Xarelto, which would both be appropriate Patient seen with resident and agree with assessment and plan as outline above Calvin Lantigua MD
--- NOTE | 2025-02-05 13:21 | P.PN ---
Subjective Progress Note Date: 02/05/25 This is a 74-year-old white female with history of multiple medical problems including dementia, hypertension, history of congestive heart failure, patient is normally a resident of [facility], and yesterday she fell out of her chair landing on her face causing displaced fracture of the nose with left orbital injury and laceration. Patient was sent to ER at [place], she had repair of her laceration in the orbital area, she was also diagnosed with urinary tract infection apparently she was discharged back to auto mode, and she developed worsening confusion, increased shortness of breath and worsening oxygen demand. Patient was sent back to [facility], and had a CT clifford ogram of the chest showing severe saddle embolus involving the right lower and left lower lobe with evidence of right heart strain. Hence patient was transferred to [facility], and I saw this patient on consultation in the ER. Patient clearly has a facial trauma with periorbital e ervin involving the left eye. And involving her nose. She is on 15 L nonrebreather mask seems to be comfortable, not in distress, ABG showed a pO2 of 101 pCO2 46 pH of 7.39. PTT is 53.2, patient is on heparin. Her WBC count is 11.9 hemoglobin 12.8. Venous Doppler is positive for right deep vein thrombosis. No DVT noted in the left lower extremity. Patient was seen by vascular surgery for possible thrombectomy, echocardiogram is pending. Vascular surgery felt that the patient is not a good candidate for EKOS mostly because of her facial trauma and she will have more risk of bleeding with tPA. Her O2 requirement is relatively high, patient is on nonrebreather mask, hence we will discuss with vascular surgery the possibility of transferring the patient for thrombectomy. The medical service on the case will initiate the process, in the meantime the patient remains on heparin and titrated as per protocol. Patient was seen today on 02/03/2025, patient underwent pulmonary thrombectomy done by vascular surgery this morning, and she is back in the ICU this morning. Presently on heparin. Looks comfortable, is at bedside, patient is now on 15 L high flow nasal cannula and should be placed on a nonrebreather mask. O2 saturation is 100% at present. Patient continues to have significant swelling and hematoma involving her left periorbital region and her upper eyelid. Extending down to the nose and to the upper lip area with bluish discoloration. Suggested evaluation by ophthalmology, however I was made aware that we do not have an physician credentialing specialist on-call to evaluate this patient. Considering this picture, I still believe the patient is better off being transferred to another hospital where ophthalmology is available. Her pulmonary issue seems to be partially solved at this point, and she does not need any further invasive procedures for her thromboembolic disease. Nonetheless I am still concerned about the hematoma that she has and the fact that she will be maintained on blood thinners heparin and eventually Eliquis. Having said this, we will recommend to the admitting service to arrange for transferring this patient to a different institution where ophthalmology is available to evaluate this patient's eye and periorbital edema. In the meantime I discussed with the at bedside her CODE STATUS, and the CODE STATUS has been changed to DNR. Yesterday her transfer was canceled by cardiology and by vascular surgery mostly because her FiO2 requirement was last last night, and vascular surgery clearly stated that they will be doing thrombectomy this morning. At this was already done. However the reason for transfer now will be mostly for ophthalmologic evaluation. Labs today showed WC count of 10 hemoglobin 13.0 PTT is high and the protocol is being followed to maintain therapeutic level of heparin. Her electrolytes are normal renal profile is normal Patient was seen today on 02/04/2025, patient remains in the ICU, on 3 L nasal cannula, her FiO2 requirement has gone down significantly since she underwent thrombectomy for saddle pulmonary embolism and RV strain. Patient was on heparin and the plan is to transition the patient to either Lovenox subcu or Eliquis considering her mental status and the patient is unable to swallow at this point, I will choose Lovenox 1 mg/kg every 12 hours subcu for treatment of her DVT/pulmonary embolism. refused transfer yesterday, hence the patient is staying here in our institution, her CODE STATUS has been changed to DNR, and I believe considering her overall comorbidities and her overall condition, needs to be approached possibly about hospice and comfort care. This may not be inappropriate. Labs reviewed WBC 7.7 hemoglobin 10.3 electrolytes are normal except for low potassium of 3.4. Patient is laying in bed, lethargic, not in any distress. Her periorbital hematoma seems to be smaller. The patient is seen today February 05, 2025 in follow-up on the regular medical floor. She was transferred out of the intensive care unit yesterday. She is currently awake. Resting in bed. Very poor historian. She is maintaining O2 saturations in the upper 90s on room air. She has been afebrile. Hemodynamically stable. Periorbital edema improving, still quite ecchymotic. White count 8.0. Hemoglobin 10.0. Platelets 182. Sodium 139. Potassium 4.5. Bicarb 22. BUN 13. Creatinine 0.5. Glucose 93. She remains on ceftriaxone. Normal saline at 75 mL/h. Currently on therapeutic Lovenox for anticoagulation. Objective - Vital Signs Vital signs: Vital Signs Temp 97.6 F 02/05/25 06:53 Pulse 85 02/05/25 06:53 Resp 17 02/05/25 06:53 BP 120/64 02/05/25 06:53 Pulse Ox 98 02/05/25 06:53 FiO2 10 02/03/25 16:00 Intake & Output 02/04/25 02/05/25 02/05/25 18:59 06:59 18:59 Intake Total 1054.682 300 Output Total 475 Balance 579.682 300 Weight 119.4 kg Intake: IV 975 Sodium Chloride 0.9% 1, 975 000 ml @ 75 mls/hr IV . [id number] ALAINA Rx#:[id number] Intake, IV Titration 79.682 Amount Heparin Sodium,Porcine/ 79.682 D5w 25,000 unit In Empty Bag 1 bag @ Per Protocol IV .Q0M ALAINA Rx#:[id number] Oral 300 Output: Urine 475 Other: Voiding Method Indwelling Catheter Indwelling Catheter Indwelling Catheter - Exam Physical exam revealed a 74 year-old female patient, poor historian, in no distress, on room air, not in any distress. Head: Evidence of periorbital edema/hematoma and repaired laceration of the julio césar orbital area the area of the swelling seems to be improving. EENT: Significant periorbital edema and hematoma from recent fall. Improving steadily. Chest: Symmetrical chest expansion Lungs: Diminished breath sound bilaterally no crackles rhonchi or wheezes Cardiac: Distant S1-S2, no S3 gallop. Abdomen: Obese, soft nontender no megaly no rebound no guarding good bowel sounds Extremities 1+ bipedal edema good pulses bilaterally. Musculoskeletal: No deformities and no limitation range of motion Neurologic: Patient is awake, no focal deficits, normal tone in all 4 extremities. Psychiatric: Could not assess, patient is lethargic, barely arousable, could not assess psychiatric status. Skin: As noted above regarding her periorbital swelling and edema/related to recent trauma/fall - Labs CBC & Chem 7: 02/05/25 10:11 02/05/25 06:08 Labs: Abnormal Lab Results - Last 24 Hours (Table) 02/05/25 02/05/25 Range/Units 06:08 10:11 RBC 3.15 L (4.10-5.20) 10*6/uL Hgb 10.0 L (12.0-15.0) g/dL Hct 30.2 L (37.2-46.3) % MPV 9.0 L (9.5-12.2) fL Immature Gran # 0.05 H (0.00-0.04) 10*3/uL Chloride 111 H (98-107) mmol/L Creatinine 0.50 L (0.52-1.04) mg/dL Calcium 7.9 L (8.4-10.2) mg/dL Assessment and Plan Assessment: Acute hypoxic respiratory failure Bilateral saddle embolus with possible right heart strain, status post thrombectomy by vascular surgery Right lower extremity SVT and DVT Recent history of trauma with facial laceration and periorbital edema/hematoma secondary to fall History of dementia/Alzheimer's disease History of congestive heart failure unknown ejection fraction Left periorbital edema/hematoma secondary to fall/trauma Status post thrombectomy for massive pulmonary embolism 02/03/2025 Plan: The patient was seen and evaluated Labs and medications reviewed Imaging reviewed Receiving normal saline at 75 mL/h Continued on ceftriaxone Check a procalcitonin Currently on therapeutic Lovenox Lifelong anticoagulation recommended per hematology Plan is to return to [facility] post discharge We will continue to follow and make further recommendations based on her clinical I have personally seen and examined the patient, performed the documentation and the assessment and plan as written. Number of minutes spent on the visit: 10 Dictation was produced using [employer] dictation software. Please excuse any grammatical, word or spelling errors.
[2025-02-05] MEDS: ONDANSETRON 4 MG/2 ML VIAL IVP STA (18:41)
[2025-02-05] MEDS: ENOXAPARIN 120 MG/0.8 ML SYRINGE SQ SCH (22:08)
--- NOTE | 2025-02-05 23:37 | P.PN ---
Subjective Progress Note Date: 02/05/25 This is a 74-year-old female who was noted to have significant bilateral pulmonary embolism underwent thrombectomy with vascular surgery doing relatively well maintained on Lovenox twice daily. Patient has significant bleeding that was noted in the face status post fall with hematoma although no fractures noted and no globe abnormalities. Patient initially was to be transferred to [facility] for further evaluation and then there is no ophthalmology here although refused the transfer. Patient was made no code and will be monitored closely here. Vascular surgery has cleared the patient for discharge and hematology also following and will continue on current anticoagulation. Consider transitioning to low-dose Eliquis twice daily. Plan will be for return to [facility] where she resides and will discuss with case management and consultations regarding possible discharge planning. Review of systems: Constitutional: No reports of fatigue, fever, or chills Cardiovascular: No reports of chest pain or palpitations Respiratory: No reports of shortness of breath or cough GI: No reports of nausea, no reports of vomiting, no diarrhea : No reports of dysuria or retention Neurovascular: reports of generalized weakness All medications have been reviewed Active Medications Albuterol Sulfate (Albuterol Nebulized 2.5 Mg/3 Ml) 2.5 mg INHALATION RT-Q4H [place] N PRN Reason: Shortness Of Breath Atorvastatin Calcium (Atorvastatin 20 Mg Tab) 20 mg PO HS [facility] Last Admin: 02/05/25 22:08 Dose: 20 mg Enoxaparin Sodium (Enoxaparin 120 Mg/0.8 Ml Syringe) 120 mg SQ BID [facility] Last Admin: 02/05/25 22:08 Dose: 120 mg Hydrochlorothiazide (Hydrochlorothiazide 25 Mg Tab) 25 mg PO DAILY [facility] Last Admin: 02/05/25 08:52 Dose: 25 mg Sodium Chloride (Saline 0.9%) 1,000 mls @ 75 mls/hr IV .[id number] [facility] Last Admin: 02/05/25 13:38 Dose: 75 mls/hr Ceftriaxone Sodium 1 gm/ (Sodium Chloride) 50 mls @ 100 mls/hr IVPB Q24H [facility]; Protocol Last Admin: 02/05/25 05:06 Dose: 100 mls/hr Losartan Potassium (Losartan 50 Mg Tab) 50 mg PO DAILY [facility] Last Admin: 02/05/25 08:52 Dose: 50 mg Miscellaneous Information (Magnesium Replacement Protocol 1 Each Misc) 1 each MISCELLANE DAILY PRN; Protocol PRN Reason: Per Protocol Miscellaneous Information (Potassium Replacement Protocol 1 Each Misc) 1 each MISCELLANE DAILY PRN; Protocol PRN Reason: Per Protocol Morphine Sulfate (Morphine Sulfate 2 Mg/Ml Syringe) 2 mg IVP Q6HR PRN PRN Reason: Pain/Discomfort Last Admin: 02/05/25 05:57 Dose: 2 mg Naloxone HCl (Naloxone 0.4 Mg/Ml 1 Ml Vial) 0.2 mg IV Q2M PRN PRN Reason: Opioid Reversal Oxycodone/Acetaminophen (Oxycodone-Apap 10-325mg 1 Each Tab) 1 each PO Q6HR PRN PRN Reason: Pain Pantoprazole Sodium (Pantoprazole 40 Mg/10 Ml Vial) 40 mg IV DAILY [facility] Last Admin: 02/05/25 08:52 Dose: 40 mg PHYSICAL EXAMINATION: GENERAL: The patient is alert and oriented x1-2 baseline, Well developed, well nourished. Elderly appearing, obese HEENT: Pupils are round and equally reacting to light. EOMI. no scleral icterus. No conjunctival pallor. Normocephalic, atraumatic. No pharyngeal erythema. No thyromegaly. CARDIOVASCULAR: S1 and S2 muffled PULMONARY: diminished breath sounds bilaterally with no wheezing or rhonchi noted. ABDOMEN: soft. Nontender on exam. obese. non-distended, normoactive bowel sounds. No palpable organomegaly. MUSCULOSKELETAL: No joint swelling or deformity. EXTREMITIES: No cyanosis, clubbing, or pedal edema. NEUROLOGICAL: Gross neurological examination did not reveal any focal deficits. Diffuse weakness SKIN: No rashes. Assessment: Bilateral saddle PE with evidence of right heart strain on echo, status post percutaneous thrombectomy with vascular surgery Right lower extremity DVT left periorbital ecchymosis with orbital nasal bone fracture and fall out of her wheelchair at [facility] History of asthma, not in exacerbation Dementia history History of GERD Hypertension Hyperlipidemia Gait dysfunction and generalized weakness Change in mental status with acute metabolic encephalopathy GI prophylaxis DVT prophylaxis No code Plan: Recommend to continue with current medications and management with vascular surgery following Patient is continued on Lovenox 120 mg twice daily and would recommend adjusting the dose as patient had significant hematoma on the left upper eyelid although they are recommending this current regimen Encourage increase activity as tolerated Home medications reviewed and resumed as appropriate Due to multiple complex medical issues, overall prognosis is guarded The impression and plan of care has been dictated by Manuela Esteves, nurse practitioner as directed. Dr. Pepe MD I have performed a history and examination and MDM of this patient, discussed the same with the dictator, and agree with the dictator's assessment and plan as written ,documented as a scribe. Based on total visit time, I have performed more than 50% of the visit. Any additional findings or plans will be noted. Objective - Vital Signs Vital signs: Vital Signs Temp 97.3 F L 02/05/25 14:54 Pulse 80 02/05/25 14:54 Resp 19 02/05/25 14:54 BP 121/54 02/05/25 14:54 Pulse Ox 98 02/05/25 14:54 FiO2 10 02/03/25 16:00 Intake & Output 02/05/25 02/05/25 02/06/25 06:59 18:59 06:59 Intake Total 300 Output Total 750 Balance 300 -750 Weight 119.4 kg Intake: Oral 300 Output: Urine 750 Other: Voiding Method Indwelling Catheter Indwelling Catheter - Labs CBC & Chem 7: 02/05/25 10:11 02/05/25 06:08 Labs: Abnormal Lab Results - Last 24 Hours (Table) 02/05/25 02/05/25 Range/Units 06:08 10:11 RBC 3.15 L (4.10-5.20) 10*6/uL Hgb 10.0 L (12.0-15.0) g/dL Hct 30.2 L (37.2-46.3) % MPV 9.0 L (9.5-12.2) fL Immature Gran # 0.05 H (0.00-0.04) 10*3/uL Chloride 111 H (98-107) mmol/L Creatinine 0.50 L (0.52-1.04) mg/dL Calcium 7.9 L (8.4-10.2) mg/dL
--- NOTE | 2025-02-06 12:56 | P.PN ---
Subjective Progress Note Date: 02/06/25 This is a 74-year-old white female with history of multiple medical problems including dementia, hypertension, history of congestive heart failure, patient is normally a resident of [facility], and yesterday she fell out of her chair landing on her face causing displaced fracture of the nose with left orbital injury and laceration. Patient was sent to ER at [place], she had repair of her laceration in the orbital area, she was also diagnosed with urinary tract infection apparently she was discharged back to auto mode, and she developed worsening confusion, increased shortness of breath and worsening oxygen demand. Patient was sent back to [facility], and had a CT clifford ogram of the chest showing severe saddle embolus involving the right lower and left lower lobe with evidence of right heart strain. Hence patient was transferred to [facility], and I saw this patient on consultation in the ER. Patient clearly has a facial trauma with periorbital e ervin involving the left eye. And involving her nose. She is on 15 L nonrebreather mask seems to be comfortable, not in distress, ABG showed a pO2 of 101 pCO2 46 pH of 7.39. PTT is 53.2, patient is on heparin. Her WBC count is 11.9 hemoglobin 12.8. Venous Doppler is positive for right deep vein thrombosis. No DVT noted in the left lower extremity. Patient was seen by vascular surgery for possible thrombectomy, echocardiogram is pending. Vascular surgery felt that the patient is not a good candidate for EKOS mostly because of her facial trauma and she will have more risk of bleeding with tPA. Her O2 requirement is relatively high, patient is on nonrebreather mask, hence we will discuss with vascular surgery the possibility of transferring the patient for thrombectomy. The medical service on the case will initiate the process, in the meantime the patient remains on heparin and titrated as per protocol. Patient was seen today on 02/03/2025, patient underwent pulmonary thrombectomy done by vascular surgery this morning, and she is back in the ICU this morning. Presently on heparin. Looks comfortable, is at bedside, patient is now on 15 L high flow nasal cannula and should be placed on a nonrebreather mask. O2 saturation is 100% at present. Patient continues to have significant swelling and hematoma involving her left periorbital region and her upper eyelid. Extending down to the nose and to the upper lip area with bluish discoloration. Suggested evaluation by ophthalmology, however I was made aware that we do not have an talend developer on-call to evaluate this patient. Considering this picture, I still believe the patient is better off being transferred to another hospital where ophthalmology is available. Her pulmonary issue seems to be partially solved at this point, and she does not need any further invasive procedures for her thromboembolic disease. Nonetheless I am still concerned about the hematoma that she has and the fact that she will be maintained on blood thinners heparin and eventually Eliquis. Having said this, we will recommend to the admitting service to arrange for transferring this patient to a different institution where ophthalmology is available to evaluate this patient's eye and periorbital edema. In the meantime I discussed with the at bedside her CODE STATUS, and the CODE STATUS has been changed to DNR. Yesterday her transfer was canceled by cardiology and by vascular surgery mostly because her FiO2 requirement was last last night, and vascular surgery clearly stated that they will be doing thrombectomy this morning. At this was already done. However the reason for transfer now will be mostly for ophthalmologic evaluation. Labs today showed WC count of 10 hemoglobin 13.0 PTT is high and the protocol is being followed to maintain therapeutic level of heparin. Her electrolytes are normal renal profile is normal Patient was seen today on 02/04/2025, patient remains in the ICU, on 3 L nasal cannula, her FiO2 requirement has gone down significantly since she underwent thrombectomy for saddle pulmonary embolism and RV strain. Patient was on heparin and the plan is to transition the patient to either Lovenox subcu or Eliquis considering her mental status and the patient is unable to swallow at this point, I will choose Lovenox 1 mg/kg every 12 hours subcu for treatment of her DVT/pulmonary embolism. refused transfer yesterday, hence the patient is staying here in our institution, her CODE STATUS has been changed to DNR, and I believe considering her overall comorbidities and her overall condition, needs to be approached possibly about hospice and comfort care. This may not be inappropriate. Labs reviewed WBC 7.7 hemoglobin 10.3 electrolytes are normal except for low potassium of 3.4. Patient is laying in bed, lethargic, not in any distress. Her periorbital hematoma seems to be smaller. The patient is seen today February 05, 2025 in follow-up on the regular medical floor. She was transferred out of the intensive care unit yesterday. She is currently awake. Resting in bed. Very poor historian. She is maintaining O2 saturations in the upper 90s on room air. She has been afebrile. Hemodynamically stable. Periorbital edema improving, still quite ecchymotic. White count 8.0. Hemoglobin 10.0. Platelets 182. Sodium 139. Potassium 4.5. Bicarb 22. BUN 13. Creatinine 0.5. Glucose 93. She remains on ceftriaxone. Normal saline at 75 mL/h. Currently on therapeutic Lovenox for anticoagulation. The patient is seen today February 06, 2025 in follow-up on the regular medical floor. She is currently resting in bed. Awake and alert in no acute distress. She is maintaining good O2 saturations in the upper 90s on 2 L/min per nasal cannula. She has been afebrile. Hemodynamically stable. No new labs today. She remains on ceftriaxone. Therapeutic Lovenox. Albuterol as needed. Periorbital edema and ecchymosis continues to improve. Objective - Vital Signs Vital signs: Vital Signs Temp 97.7 F 02/06/25 08:00 Pulse 77 02/06/25 08:15 Resp 16 02/06/25 08:15 BP 120/71 02/06/25 08:00 Pulse Ox 97 02/06/25 08:00 FiO2 10 02/03/25 16:00 Intake & Output 02/05/25 02/06/25 02/06/25 18:59 06:59 18:59 Intake Total 120 Output Total 750 700 Balance -750 -700 120 Weight 73 kg Intake: Oral 120 Output: Urine 750 700 Other: Voiding Method Indwelling Catheter Indwelling Catheter Indwelling Catheter # Voids 1 - Exam Physical exam revealed a frail, weak 74 year-old female, poor historian, in no distress, on 2 L nasal cannula, not in any distress. Head: Evidence of periorbital edema/hematoma and repaired laceration of the periorbital area the area of the swelling seems to be improving. EENT: Significant periorbital edema and hematoma from recent fall. Improving steadily. Chest: Symmetrical chest expansion Lungs: Diminished breath sound bilaterally no crackles rhonchi or wheezes Cardiac: Distant S1-S2, no S3 gallop. Abdomen: Obese, soft nontender no megaly no rebound no guarding good bowel sounds Extremities 1+ bipedal edema good pulses bilaterally. Musculoskeletal: No deformities and no limitation range of motion Neurologic: Patient is awake, no focal deficits, normal tone in all 4 extremities. Psychiatric: Could not assess, patient is lethargic, barely arousable, could not assess psychiatric status. Skin: As noted above regarding her periorbital swelling and edema/related to recent trauma/fall - Labs CBC & Chem 7: 02/05/25 10:11 02/05/25 06:08 Assessment and Plan Assessment: Acute hypoxic respiratory failure secondary to bilateral saddle emboli with possible right heart strain, status post thrombectomy by vascular surgery improved and currently on 2 L nasal cannula Right lower extremity SVT and DVT Recent history of trauma with facial laceration and periorbital edema/hematoma secondary to fall History of dementia/Alzheimer's disease History of congestive heart failure unknown ejection fraction Left periorbital edema/hematoma secondary to fall/trauma Status post thrombectomy for massive pulmonary embolism 02/03/2025 Plan: The patient was seen and evaluated Currently stable on 2 L nasal cannula Wean down/off the FiO2 as tolerated Medications reviewed Discontinue ceftriaxone Procalcitonin negative Currently on therapeutic Lovenox Lifelong anticoagulation recommended per hematology Plan is to go to [facility] at discharge This patient was seen independently by the pulmonary nurse practitioner addressing pulmonary issues I have personally seen and examined the patient, performed the documentation and the assessment and plan as written. Number of minutes spent on the visit: 24 Dictation was produced using [employer] dictation software. Please excuse any grammatical, word or spelling errors.
--- NOTE | 2025-02-06 23:26 | P.PN ---
Subjective Progress Note Date: 02/06/25 This is a 74-year-old female who was noted to have significant bilateral pulmonary embolism underwent thrombectomy with vascular surgery doing relatively well maintained on Lovenox twice daily. Patient has significant bleeding that was noted in the face status post fall with hematoma although no fractures noted and no globe abnormalities. Patient initially was to be transferred to [facility] for further evaluation and then there is no ophthalmology here although refused the transfer. Patient was made no code and will be monitored closely here. Vascular surgery has cleared the patient for discharge and hematology also following and will continue on current anticoagulation. Consider transitioning to low-dose Eliquis twice daily. Plan will be for return to [facility] where she resides and will discuss with case management and consultations regarding possible discharge planning. 02/06/2025 Patient is seen and evaluated in follow-up currently sitting up in the bed much more awake and alert today. Patient continues with significant bruising around bilateral eye orbits and sclera appear normal. Patient denies any blurry vision or visual disturbances and reports she can see out of both eyes. Patient was staying at [facility] in case management following awaiting updated notes and family looking into possible [facility] homes. Referral placed to [facility] and currently pending at this time. Patient is afebrile with no reports of chest pain or shortness of breath. Patient is continued on subcutaneous Lovenox twice daily and will talk with hematology regarding low-dose oral anticoagulation. Will monitor overnight and follow-up on repeat labs and replace electrolytes per protocol. Encourage increase activity as tolerated. Review of systems: Constitutional: No reports of fatigue, fever, or chills Cardiovascular: No reports of chest pain or palpitations Respiratory: No reports of shortness of breath or cough GI: No reports of nausea, no reports of vomiting, no diarrhea : No reports of dysuria or retention Neurovascular: reports of generalized weakness All medications have been reviewed Active Medications Albuterol Sulfate (Albuterol Nebulized 2.5 Mg/3 Ml) 2.5 mg INHALATION RT-Q4H PRN PRN Reason: Shortness Of Breath Atorvastatin Calcium (Atorvastatin 20 Mg Tab) 20 mg PO HS [facility] Last Admin: 02/06/25 21:23 Dose: 20 mg Enoxaparin Sodium (Enoxaparin 120 Mg/0.8 Ml Syringe) 120 mg SQ BID [facility] Last Admin: 02/06/25 21:23 Dose: 120 mg Hydrochlorothiazide (Hydrochlorothiazide 25 Mg Tab) 25 mg PO DAILY [facility] Last Admin: 02/06/25 08:13 Dose: 25 mg Losartan Potassium (Losartan 50 Mg Tab) 50 mg PO DAILY [facility] Last Admin: 02/06/25 08:13 Dose: 50 mg Miscellaneous Information (Magnesium Replacement Protocol 1 Each Misc) 1 each MISCELLANE DAILY PRN; Protocol PRN Reason: Per Protocol Miscellaneous Information (Potassium Replacement Protocol 1 Each Misc) 1 each MISCELLANE DAILY PRN; Protocol PRN Reason: Per Protocol Morphine Sulfate (Morphine Sulfate 2 Mg/Ml Syringe) 2 mg IVP Q6HR PRN PRN Reason: Pain/Discomfort Last Admin: 02/06/25 19:41 Dose: 2 mg Naloxone HCl (Naloxone 0.4 Mg/Ml 1 Ml Vial) 0.2 mg IV Q2M PRN PRN Reason: Opioid Reversal Oxycodone/Acetaminophen (Oxycodone-Apap 10-325mg 1 Each Tab) 1 each PO Q6HR PRN PRN Reason: Pain Pantoprazole Sodium (Pantoprazole 40 Mg/10 Ml Vial) 40 mg IV DAILY [facility] Last Admin: 02/06/25 08:13 Dose: 40 mg PHYSICAL EXAMINATION: GENERAL: The patient is alert and oriented x1-2 baseline, Well developed, well nourished. Elderly appearing, obese HEENT: Pupils are round and equally reacting to light. EOMI. no scleral icterus. No conjunctival pallor. Normocephalic, atraumatic. No pharyngeal erythema. No thyromegaly. CARDIOVASCULAR: S1 and S2 muffled PULMONARY: diminished breath sounds bilaterally with no wheezing or rhonchi noted. ABDOMEN: soft. Nontender on exam. obese. non-distended, normoactive bowel sounds. No palpable organomegaly. MUSCULOSKELETAL: No joint swelling or deformity. EXTREMITIES: No cyanosis, clubbing, or pedal edema. NEUROLOGICAL: Gross neurological examination did not reveal any focal deficits. Diffuse weakness SKIN: No rashes. Bilateral orbits significant ecchymosis with some healing noted, facial swelling has improved Assessment: Bilateral saddle PE with evidence of right heart strain on echo, status post percutaneous thrombectomy with vascular surgery Right lower extremity DVT left periorbital ecchymosis with orbital nasal bone fracture and fall out of her wheelchair at [facility] History of asthma, not in exacerbation Dementia history History of GERD Hypertension Hyperlipidemia Gait dysfunction and generalized weakness Change in mental status with acute metabolic encephalopathy GI prophylaxis DVT prophylaxis No code Plan: Recommend to continue with current medications and management with vascular surgery following Patient is continued on Lovenox 120 mg twice daily and would recommend adjusting the dose as patient had significant hematoma on the left upper eyelid although they are recommending this current regimen, will discuss with hematology regarding possible low-dose oral anticoagulation Encourage increase activity as tolerated Need updated PT/OT therapy notes and case management following placing multiple referrals as family would like to look into AF. Looking into [facility] if patient can be excepted there We will discuss further with hematology. Monitor CBC and BMP closely Encouraged small frequent meals Home medications reviewed and resumed as appropriate Due to multiple complex medical issues, overall prognosis is guarded The impression and plan of care has been dictated by Manuela Esteves, nurse practitioner as directed. Dr. Pepe MD I have performed a history and examination and MDM of this patient, discussed the same with the dictator, and agree with the dictator's assessment and plan as written ,documented as a scribe. Based on total visit time, I have performed more than 50% of the visit. Any additional findings or plans will be noted. Objective - Vital Signs Vital signs: Vital Signs Temp 98.4 F 02/06/25 14:00 Pulse 58 L 02/06/25 14:00 Resp 17 02/06/25 14:00 BP 134/72 02/06/25 14:00 Pulse Ox 98 02/06/25 14:00 FiO2 10 02/03/25 16:00 Intake & Output 02/06/25 02/06/25 02/07/25 06:59 18:59 06:59 Intake Total 120 Output Total 700 1400 Balance -700 -1280 Weight 73 kg Intake: Oral 120 Output: Urine 700 1400 Other: Voiding Method Indwelling Catheter Indwelling Catheter # Voids 1 - Labs CBC & Chem 7: 02/05/25 10:11 02/05/25 06:08
[2025-02-07 05:54] LABS: ALT 29 U/L (4-34); AST 40 U/L (14-36); African American GFR (CKD) >90 (>60 ml/min/1.73 sqM); Albumin 2.8 g/dL (3.5-5.0); Albumin/Globulin Ratio 1.2; Alkaline Phosphatase 47 U/L (38-126); Anion Gap 9 mmol/L; Blood Urea Nitrogen 5 mg/dL (7-17); Calcium 8.3 mg/dL (8.4-10.2); Carbon Dioxide 24 mmol/L (22-30); Chloride 108 mmol/L (98-107); Globulin 2.3 g/dL; Glucose 85 mg/dL (74-99); Magnesium 1.9 mg/dL (1.6-2.3); Non-African American GFR(CKD) >90 (>60 ml/min/1.73 sqM); Sodium 141 mmol/L (137-145); Total Protein 5.1 g/dL (6.3-8.2)
[2025-02-07 05:55] LABS: Potassium 3.7 mmol/L (3.5-5.1)
[2025-02-07 06:22] LABS: Basophils # (A) 0.07 10*3/uL (0.00-0.10); Basophils % (A) 0.9 %; Eosinophils # (A) 0.15 10*3/uL (0.04-0.35); Eosinophils % (A) 1.8 %; HCT 29.4 % (37.2-46.3); HGB 9.9 g/dL (12.0-15.0); Lymphocytes # (A) 1.17 10*3/uL (0.90-5.00); Lymphocytes % (A) 14.4 %; MCH 31.8 pg (27.0-32.0); MCHC 33.7 g/dL (32.0-37.0); MCV 94.5 fL (80.0-97.0); Monocytes # (A) 0.86 10*3/uL (0.20-1.00); Monocytes % (A) 10.6 %; Neutrophils # (A) 5.81 10*3/uL (1.80-7.70); Neutrophils % (A) 71.7 %; Platelet Count 169 10*3/uL (140-440); RBC 3.11 10*6/uL (4.10-5.20); RDW 13.5 % (11.5-14.5); WBC 8.11 10*3/uL (4.50-10.00)
[2025-02-07] MEDS: MAGNESIUM HYDROXIDE 2,400 MG/30 ML CUP PO PRN (11:03)
--- NOTE | 2025-02-07 11:38 | P.PN ---
Subjective Progress Note Date: 02/07/25 Principal diagnosis: PE, significant bruising post fall In f/u today pt bruising appears to be stable, Hgb has remained overall stable after initial drop. Urine in sapp is clear. Pt denied loss of vision or eye pain. Objective - Vital Signs Vital signs: Vital Signs Temp 97.3 F L 02/07/25 06:50 Pulse 51 L 02/07/25 06:50 Resp 18 02/07/25 06:50 BP 128/71 02/07/25 06:50 Pulse Ox 98 02/07/25 06:50 FiO2 10 02/03/25 16:00 Intake & Output 02/06/25 02/07/25 02/07/25 18:59 06:59 18:59 Intake Total 120 200 Output Total 1400 1600 Balance -1280 -1600 200 Weight 96 kg Intake: Oral 120 200 Output: Urine 1400 1600 Other: Voiding Method Indwelling Catheter Indwelling Catheter Indwelling Catheter # Voids 1 # Bowel Movements 1 - Constitutional General appearance: Present: cooperative, no acute distress, obese - EENT EENT Comment(s): significant facial bruising, left eye severe hematoma Eyes: Present: EOMI ENT: Present: normal oropharynx - Respiratory Details: resp unlabored at rest - Cardiovascular Details: radial pulse 2+, regular - Peripheral edema leg Peripheral Edema: bilateral: None - Integumentary Integumentary Comment(s): scattered upper extremity bruising - Neurologic Neurologic: Present: CNII-XII intact (grossly) - Psychiatric Psychiatric Comment(s): Arouses to voice, slow to respond, flat affect, calm - Labs CBC & Chem 7: 02/07/25 04:08 02/07/25 04:08 Labs: Abnormal Lab Results - Last 24 Hours (Table) 02/07/25 02/07/25 Range/Units 04:08 04:08 RBC 3.11 L (4.10-5.20) 10*6/uL Hgb 9.9 L (12.0-15.0) g/dL Hct 29.4 L (37.2-46.3) % Immature Gran # 0.05 H (0.00-0.04) 10*3/uL Chloride 108 H (98-107) mmol/L BUN 5 L (7-17) mg/dL Creatinine 0.39 L (0.52-1.04) mg/dL Calcium 8.3 L (8.4-10.2) mg/dL AST 40 H (14-36) U/L Total Protein 5.1 L (6.3-8.2) g/dL Albumin 2.8 L (3.5-5.0) g/dL Assessment and Plan (1) Pulmonary embolism Current Visit: Yes Status: Acute Priority: High Code(s): I26.99 - OTHER PULMONARY EMBOLISM WITHOUT ACUTE COR PULMONALE SNOMED Code(s): 88259885 Plan: RLE superficial thrombosis, saddle PE -unclear if provoked or unprovoked. -Hematology recommendation is lifetime anticoagulation-because of limited mobility, wheelchair-bound. -Case discussed with IM today. Concern for significant bruising/hematoma post fall. Ok to transition from full dose lovenox to eliquis, can forgo the loading dose.
[2025-02-07] MEDS: oxyCODONE-APAP 10-325MG 1 EACH TAB PO PRN (12:16)
--- NOTE | 2025-02-07 12:24 | P.PN ---
Subjective Progress Note Date: 02/07/25 This is a 74-year-old white female with history of multiple medical problems including dementia, hypertension, history of congestive heart failure, patient is normally a resident of [facility], and yesterday she fell out of her chair landing on her face causing displaced fracture of the nose with left orbital injury and laceration. Patient was sent to ER at [place], she had repair of her laceration in the orbital area, she was also diagnosed with urinary tract infection apparently she was discharged back to auto mode, and she developed worsening confusion, increased shortness of breath and worsening oxygen demand. Patient was sent back to [facility] [place], and had a CT clifford ogram of the chest showing severe saddle embolus involving the right lower and left lower lobe with evidence of right heart strain. Hence patient was transferred to [facility], and I saw this patient on consultation in the ER. Patient clearly has a facial trauma with periorbital e ervin involving the left eye. And involving her nose. She is on 15 L nonrebreather mask seems to be comfortable, not in distress, ABG showed a pO2 of 101 pCO2 46 pH of 7.39. PTT is 53.2, patient is on heparin. Her WBC count is 11.9 hemoglobin 12.8. Venous Doppler is positive for right deep vein thrombosis. No DVT noted in the left lower extremity. Patient was seen by vascular surgery for possible thrombectomy, echocardiogram is pending. Vascular surgery felt that the patient is not a good candidate for EKOS mostly because of her facial trauma and she will have more risk of bleeding with tPA. Her O2 requirement is relatively high, patient is on nonrebreather mask, hence we will discuss with vascular surgery the possibility of transferring the patient for thrombectomy. The medical service on the case will initiate the process, in the meantime the patient remains on heparin and titrated as per protocol. Patient was seen today on 02/03/2025, patient underwent pulmonary thrombectomy done by vascular surgery this morning, and she is back in the ICU this morning. Presently on heparin. Looks comfortable, is at bedside, patient is now on 15 L high flow nasal cannula and should be placed on a nonrebreather mask. O2 saturation is 100% at present. Patient continues to have significant swelling and hematoma involving her left periorbital region and her upper eyelid. Extending down to the nose and to the upper lip area with bluish discoloration. Suggested evaluation by ophthalmology, however I was made aware that we do not have an business education professor on-call to evaluate this patient. Considering this picture, I still believe the patient is better off being transferred to another hospital where ophthalmology is available. Her pulmonary issue seems to be partially solved at this point, and she does not need any further invasive procedures for her thromboembolic disease. Nonetheless I am still concerned about the hematoma that she has and the fact that she will be maintained on blood thinners heparin and eventually Eliquis. Having said this, we will recommend to the admitting service to arrange for transferring this patient to a different institution where ophthalmology is available to evaluate this patient's eye and periorbital edema. In the meantime I discussed with the at bedside her CODE STATUS, and the CODE STATUS has been changed to DNR. Yesterday her transfer was canceled by cardiology and by vascular surgery mostly because her FiO2 requirement was last last night, and vascular surgery clearly stated that they will be doing thrombectomy this morning. At this was already done. However the reason for transfer now will be mostly for ophthalmologic evaluation. Labs today showed WC count of 10 hemoglobin 13.0 PTT is high and the protocol is being followed to maintain therapeutic level of heparin. Her electrolytes are normal renal profile is normal Patient was seen today on 02/04/2025, patient remains in the ICU, on 3 L nasal cannula, her FiO2 requirement has gone down significantly since she underwent thrombectomy for saddle pulmonary embolism and RV strain. Patient was on heparin and the plan is to transition the patient to either Lovenox subcu or Eliquis considering her mental status and the patient is unable to swallow at this point, I will choose Lovenox 1 mg/kg every 12 hours subcu for treatment of her DVT/pulmonary embolism. refused transfer yesterday, hence the patient is staying here in our institution, her CODE STATUS has been changed to DNR, and I believe considering her overall comorbidities and her overall condition, needs to be approached possibly about hospice and comfort care. This may not be inappropriate. Labs reviewed WBC 7.7 hemoglobin 10.3 electrolytes are normal except for low potassium of 3.4. Patient is laying in bed, lethargic, not in any distress. Her periorbital hematoma seems to be smaller. The patient is seen today February 05, 2025 in follow-up on the regular medical floor. She was transferred out of the intensive care unit yesterday. She is currently awake. Resting in bed. Very poor historian. She is maintaining O2 saturations in the upper 90s on room air. She has been afebrile. Hemodynamically stable. Periorbital edema improving, still quite ecchymotic. White count 8.0. Hemoglobin 10.0. Platelets 182. Sodium 139. Potassium 4.5. Bicarb 22. BUN 13. Creatinine 0.5. Glucose 93. She remains on ceftriaxone. Normal saline at 75 mL/h. Currently on therapeutic Lovenox for anticoagulation. The patient is seen today February 06, 2025 in follow-up on the regular medical floor. She is currently resting in bed. Awake and alert in no acute distress. She is maintaining good O2 saturations in the upper 90s on 2 L/min per nasal cannula. She has been afebrile. Hemodynamically stable. No new labs today. She remains on ceftriaxone. Therapeutic Lovenox. Albuterol as needed. Periorbital edema and ecchymosis continues to improve. The patient is seen today February 07, 2025 in follow-up on the regular medical floor. She is currently sitting up in a chair at the bedside. Awake and alert in no acute distress. Still with significant ecchymosis of the periorbital area bilaterally. Still improving. No worsening. She is maintaining O2 saturations in the 90s on 2 L/min per nasal cannula. She has been afebrile. Hemodynamically stable. White count 8.1. Hemoglobin 9.9. Platelets 169. Sodium 141. Potassium 3.7. Bicarb 24. BUN 5. Creatinine 0.39. Glucose 85. Objective - Vital Signs Vital signs: Vital Signs Temp 97.3 F L 02/07/25 06:50 Pulse 51 L 02/07/25 06:50 Resp 18 02/07/25 06:50 BP 128/71 02/07/25 06:50 Pulse Ox 98 02/07/25 06:50 FiO2 10 02/03/25 16:00 Intake & Output 02/06/25 02/07/25 02/07/25 18:59 06:59 18:59 Intake Total 120 200 Output Total 1400 1600 Balance -1280 -1600 200 Weight 96 kg Intake: Oral 120 200 Output: Urine 1400 1600 Other: Voiding Method Indwelling Catheter Indwelling Catheter Indwelling Catheter # Voids 1 # Bowel Movements 1 - Exam Physical exam: Reveals a frail, 74 year-old female, sitting up in a chair at the bedside, in no distress, on 2 L nasal cannula, not in any distress. Head: Evidence of periorbital edema/hematoma and repaired laceration of the periorbital area the area of the swelling seems to be improving. EENT: Significant periorbital edema and hematoma from recent fall. Improving steadily. Chest: Symmetrical chest expansion Lungs: Diminished breath sound bilaterally no crackles rhonchi or wheezes Cardiac: Distant S1-S2, no S3 gallop. Abdomen: Obese, soft nontender no megaly no rebound no guarding good bowel sounds Extremities 1+ bipedal edema good pulses bilaterally. Musculoskeletal: No deformities and no limitation range of motion Neurologic: Patient is awake, no focal deficits, normal tone in all 4 extremities. Psychiatric: Could not assess, patient is lethargic, barely arousable, could not assess psychiatric status. Skin: As noted above regarding her periorbital swelling and edema/related to recent trauma/fall - Labs CBC & Chem 7: 02/07/25 04:08 02/07/25 04:08 Labs: Abnormal Lab Results - Last 24 Hours (Table) 02/07/25 02/07/25 Range/Units 04:08 04:08 RBC 3.11 L (4.10-5.20) 10*6/uL Hgb 9.9 L (12.0-15.0) g/dL Hct 29.4 L (37.2-46.3) % Immature Gran # 0.05 H (0.00-0.04) 10*3/uL Chloride 108 H (98-107) mmol/L BUN 5 L (7-17) mg/dL Creatinine 0.39 L (0.52-1.04) mg/dL Calcium 8.3 L (8.4-10.2) mg/dL AST 40 H (14-36) U/L Total Protein 5.1 L (6.3-8.2) g/dL Albumin 2.8 L (3.5-5.0) g/dL Assessment and Plan Assessment: Acute hypoxic respiratory failure secondary to bilateral saddle emboli with possible right heart strain, status post thrombectomy by vascular surgery [facility] ed and currently on 2 L nasal cannula Right lower extremity SVT and DVT Recent history of trauma with facial laceration and periorbital edema/hematoma secondary to fall History of dementia/Alzheimer's disease History of congestive heart failure unknown ejection fraction Left periorbital edema/hematoma secondary to fall/trauma Status post thrombectomy for massive pulmonary embolism 02/03/2025 Plan: The patient was seen and evaluated Labs and medications reviewed Currently stable on 2 L nasal cannula Wean down/off the FiO2 as tolerated Currently on therapeutic Lovenox Lifelong anticoagulation recommended Cleared for discharge from the pulmonary standpoint Plan is to go to [facility] This patient was seen independently by the pulmonary nurse practitioner chente jama pulmonary issues I have personally seen and examined the patient, performed the documentation and the assessment and plan as written. Number of minutes spent on the visit: 23 Dictation was produced using [employer] dictation software. Please excuse any grammatical, word or spelling errors.
[2025-02-07 15:24] VITALS: BP 130/70; PULSE 63; RESP 17; TEMP 97.4
--- NOTE | 2025-02-07 15:27 | P.DS ---
Providers Date of admission: 02/02/25 03:51 Expected date of discharge: 02/07/25 Attending physician: Rubi Catnu Consults: 02/02/25 03:48 Consult Physician Stat Consulting Provider: Camilo Mendiola Consult Reason/Comments: icu patient Do you want consulting provider notified?: Already Contacted 02/03/25 09:27 Consult Physician Urgent Consulting Provider: Augustine Waters Consult Reason/Comments: Eye injury Do you want consulting provider notified?: Yes 02/04/25 15:12 Consult Physician Routine Consulting Provider: Enzo Domingo Consult Reason/Comments: pe Do you want consulting provider notified?: Yes Primary care physician: Mark Cooper Hospital Course: Final diagnosis Bilateral saddle PE with evidence of right heart strain on echo, status post percutaneous thrombectomy with vascular surgery Right lower extremity DVT left periorbital ecchymosis with orbital nasal bone fracture and fall out of her wheelchair at [facility] History of asthma, not in exacerbation Dementia history History of GERD Hypertension Hyperlipidemia Gait dysfunction and generalized weakness Change in mental status with acute metabolic encephalopathy GI prophylaxis DVT prophylaxis No code Discharge disposition Patient is being discharged in a stable condition with guarded prognosis to [facility]. Patient will follow-up with Dr. Cooper in the outpatient setting upon discharge. Patient is to continue with oral Eliquis 5 mg twice daily and would recommend outpatient follow-up with vascular surgery as scheduled. Total time taken is greater than 35 minutes. Hospital course This is a 74-year-old female who was recently admitted with fall with altered mental status from [facility] with a left eyelid laceration secondary to the fall with significant hematoma and also extensive bilateral saddle PE with evidence of right heart strain and is status post percutaneous thrombectomy with vascular surgery. Patient has been maintained on Lovenox with no active bleeding noted and hemoglobin is stable above 9. Hematology following and further discussion was had regarding anticoagulation and will be transition to Eliquis 5 mg twice daily with close monitoring of CBC and any further bleeding in the outpatient setting. Patient did have sutures placed at [facility] and will need suture removal within the next 7 days. Family attempting to get patient into [facility] although there is no bed available and will be returning to [facility]. Patient was also noted to have a right lower extremity DVT and will continue on Eliquis as mentioned previously. Recommend outpatient follow- up with vascular surgery and patient has been cleared by consultations for discharge. Please refer to other consultation notes for further HPI. Discussion was had regarding CODE STATUS and , power of title attorney is agreeable to no code. Physical exam: Gen: This is a 74-year-old female who is awake, alert and oriented x 2, well- developed, elderly appearing, obese, chronically ill appearing HEENT: Head is atraumatic, normocephalic. Pupils equal, round. Sclerae is anicteric. NECK: Supple. No JVD. No lymphadenopathy. No thyromegaly. LUNGS: Diminished breath sounds bilaterally otherwise clear to auscultation. No wheezes or rhonchi. No intercostal retractions. HEART: Regular rate and rhythm. No murmur. ABDOMEN: Soft. Obese bowel sounds are present. No masses. No tenderness. EXTREMITIES: No pedal edema. No calf tenderness. NEUROLOGICAL: Patient is awake, alert and oriented x2. Baseline. Cranial nerves 2 through 12 are grossly intact. Diffusely weak Please refer to medication reconciliation sheet for a list of medications. The impression and plan of care has been dictated by Manuela Esteves, Nurse Practitioner as directed. Dr. Pepe MD I have performed a history and examination and MDM of this patient, discussed the same with the dictator, and agree with the dictator's assessment and plan as written ,documented as a scribe. Based on total visit time, I have performed more than 50% of the visit. Patient Condition at Discharge: Fair Plan - Discharge Summary Discharge Rx Participant: No New Discharge Prescriptions: New Apixaban [Eliquis] 5 mg PO BID tab polyethylene glycoL 3350 [Miralax] 17 gm PO DAILY packet oxyCODONE-APAP 10-325MG [Percocet 10-325 mg] 1 each PO Q8H PRN #3 tab PRN Reason: Pain Continue traZODone HCL [Desyrel] 50 mg PO HS Montelukast [Singulair] 10 mg PO DAILY risperiDONE [RisperDAL] 1 mg PO BID Sennosides/Docusate Sodium [Senna Plus 8.6-50 mg Tablet] 2 tab PO DAILY Potassium Citrate [Potassium Citrate ER] 20 meq PO BID@0800,1700 Magnesium Hydroxide [Milk of Magnesia] 2,400 mg PO Q48H PRN PRN Reason: Constipation Memantine [Namenda] 5 mg PO DAILY Losartan [Cozaar] 50 mg PO DAILY Calcium Carbonate/Vitamin D3 [Calcium 500 mg-Vit D3 5 mcg (200 Unit)] 2 tab PO BID bisacodyL [Dulcolax] 10 mg RECTAL Q72H PRN PRN Reason: Constipation Venlafaxine HCl ER [Effexor XR] 150 mg PO DAILY #6 cap hydroCHLOROthiazide [Hydrodiuril] 25 mg PO DAILY Famotidine [Pepcid] 20 mg PO DAILY Atorvastatin [Lipitor] 20 mg PO HS Albuterol Nebulized [Ventolin Nebulized] 2.5 mg INHALATION RT-Q4H PRN PRN Reason: Shortness Of Breath Discontinued clonazePAM 0.5 mg PO DAILY Aspirin 81 mg PO DAILY Discharge Medication List Albuterol Nebulized [Ventolin Nebulized] 2.5 mg INHALATION RT-Q4H PRN 02/02/25 [History] Atorvastatin [Lipitor] 20 mg PO HS 02/02/25 [History] Calcium Carbonate/Vitamin D3 [Calcium 500 mg-Vit D3 5 mcg (200 Unit)] 2 tab PO BID 02/02/25 [History] Famotidine [Pepcid] 20 mg PO DAILY 02/02/25 [History] Losartan [Cozaar] 50 mg PO DAILY 02/02/25 [History] Magnesium Hydroxide [Milk of Magnesia] 2,400 mg PO Q48H PRN 02/02/25 [History] Memantine [Namenda] 5 mg PO DAILY 02/02/25 [History] Montelukast [Singulair] 10 mg PO DAILY 02/02/25 [History] Potassium Citrate [Potassium Citrate ER] 20 meq PO BID@0800,1700 02/02/25 [History] Sennosides/Docusate Sodium [Senna Plus 8.6-50 mg Tablet] 2 tab PO DAILY 02/02/25 [History] bisacodyL [Dulcolax] 10 mg RECTAL Q72H PRN 02/02/25 [History] hydroCHLOROthiazide [Hydrodiuril] 25 mg PO DAILY 02/02/25 [History] risperiDONE [RisperDAL] 1 mg PO BID 02/02/25 [History] traZODone HCL [Desyrel] 50 mg PO HS 02/02/25 [History] Apixaban [Eliquis] 5 mg PO BID tab 02/07/25 [Rx] Venlafaxine HCl ER [Effexor XR] 150 mg PO DAILY #6 cap 02/07/25 [Rx] oxyCODONE-APAP 10-325MG [Percocet 10-325 mg] 1 each PO Q8H PRN #3 tab 02/07/25 [Rx] polyethylene glycoL 3350 [Miralax] 17 gm PO DAILY packet 02/07/25 [Rx] Follow up Appointment(s)/Referral(s): Roger Jaramillo DO [STAFF PHYSICIAN] - 2 Weeks Mark Cooper MD [Primary Care Provider] - 1-2 days Activity/Diet/Wound Care/Special Instructions: Patient is returning to [facility] Activity as tolerated Follow-up with primary care provider on discharge Follow-up with vascular surgery outpatient Continue taking medications as prescribed Patient maintained on Eliquis 5 mg twice daily Patient will need suture removal within the next 7 days of the left orbital laceration
[2025-02-07] MEDS ORDERED: APIXABAN 5 MG TAB PO SCH (21:00)
== END 2025-02-07 16:40 | DRG 163 ==
LOC: EC 23:31 → 2SICU 02-02 03:51 → 4SSUR 02-04 22:42
PROVIDERS: ADMIT Hospitalist; ATTEND Hospitalist
PROC: B31T1ZZ Fluoroscopy of Left Pulmonary Artery using Low Osmolar Contrast (ICD-10-PCS; 2025-02-03)
PROC: B31UYZZ Fluoroscopy of Pulmonary Trunk using Other Contrast (ICD-10-PCS; 2025-02-03)
PROC: B31SYZZ Fluoroscopy of Right Pulmonary Artery using Other Contrast (ICD-10-PCS; 2025-02-03)
PROC: 02CQ3ZZ Extirpation of Matter from Right Pulmonary Artery, Percutaneous Approach (ICD-10-PCS; principal; 2025-02-03 07:11)
PROC: 02CR3ZZ Extirpation of Matter from Left Pulmonary Artery, Percutaneous Approach (ICD-10-PCS; 2025-02-03 07:11)
PROC: B54BZZA Ultrasonography of Right Lower Extremity Veins, Guidance (ICD-10-PCS; 2025-02-03 07:11)
DX: I26.02 Saddle embolus of pulmonary artery with acute cor pulmonale (principal); G93.41 Metabolic encephalopathy; J96.21 Acute and chronic respiratory failure with hypoxia; I21.4 Non-ST elevation (NSTEMI) myocardial infarction; Z66 Do not resuscitate; I82.413 Acute embolism and thrombosis of femoral vein, bilateral; I82.431 Acute embolism and thrombosis of right popliteal vein; J45.909 Unspecified asthma, uncomplicated; S01.81XA Laceration without foreign body of other part of head, initial encounter; S02.2XXA Fracture of nasal bones, initial encounter for closed fracture; I11.0 Hypertensive heart disease with heart failure; G30.9 Alzheimer's disease, unspecified; E66.9 Obesity, unspecified; F32.A Depression, unspecified; I82.4Z1 Acute embolism and thrombosis of unspecified deep veins of right distal lower extremity; I82.811 Embolism and thrombosis of superficial veins of right lower extremity; I50.9 Heart failure, unspecified; E78.5 Hyperlipidemia, unspecified; I25.10 Atherosclerotic heart disease of native coronary artery without angina pectoris; K21.9 Gastro-esophageal reflux disease without esophagitis; S01.112A Laceration without foreign body of left eyelid and periocular area, initial encounter; W05.0XXA Fall from non-moving wheelchair, initial encounter; Z68.35 Body mass index [BMI] 35.0-35.9, adult; Z79.01 Long term (current) use of anticoagulants; Z79.82 Long term (current) use of aspirin; Z79.899 Other long term (current) drug therapy; Z86.711 Personal history of pulmonary embolism; Z86.718 Personal history of other venous thrombosis and embolism; Z86.73 Personal history of transient ischemic attack (TIA), and cerebral infarction without residual deficits; Z99.3 Dependence on wheelchair; Z88.5 Allergy status to narcotic agent; Z88.0 Allergy status to penicillin; Z88.2 Allergy status to sulfonamides
CPT/HCPCS: 36415; 36600; 37184; 37185; 70450; 70480; 71045; 75743; 80048; 80053; 82805; 83605; 83735; 84132; 84145; 85025; 85610; 85730; 87635; 93005; 93306; 93970; 96365; 96366; 96375; 99291